=== PATIENT | male | born 1940 | race Caucasian/White ===

== ENCOUNTER 2018-12-26 13:34 | Outpatient (REF) | payer MEDICARE, OTHER, SELFPAY ==
[2018-12-26 14:24] LABS: Bilirubin Negative (Negative); Blood Small (Negative); Clarity Sl Cloudy; Glucose Negative (Negative); Ketones Negative (Negative); Leukocyte Esterase Moderate (Negative); Nitrite Negative (Negative); Specific Gravity 1.015 (1.005-1.025); Urobilinogen 0.2 EU/dL (Up TO 0.2)
[2018-12-26 14:38] LABS: C & S Indicated? Yes; WBC >50 HPF (0-5)
== END 2018-12-26 13:54 ==
LOC: LBN 13:34
PROVIDERS: PCP Family Medicine; Visit Provider Family Medicine
DX: N30.01 Acute cystitis with hematuria (principal)
CPT/HCPCS: 81003; 81015; 87086

== ENCOUNTER 2019-02-13 02:24 | Outpatient (CLI) | payer MEDICARE, OTHER, SELFPAY ==
[2019-02-13 15:15] LABS: ALT 18 U/L (12-78); AST 19 U/L (15-37); Albumin 3.7 g/dL (3.4-5.0); Alkaline Phosphatase 41 U/L (46-116); Anion Gap 8.9 mmol/L (3-11); BUN 19 mg/dL (7-18); Bilirubin, Total 0.5 mg/dL (0.2-1.0); CO2 28.1 mmol/L (21.0-32.0); CREATININE 1.27 mg/dL (0.70-1.30); Chloride 102 mmol/L (98-107); Cholesterol 111 mg/dL (50-200); Estimated GFR 55.14 (mL/min/1.73m2); Glucose 87 mg/dL (70-100); HDL Cholesterol 55 mg/dL (40-60); LDL CHOLESTEROL 48 mg/dL (<100); Potassium 4.1 mmol/L (3.5-5.1); Sodium 139 mmol/L (136-145); Total Protein 6.7 g/dL (6.4-8.2); Triglyceride 58 mg/dL (30-150)
== END 2019-02-13 02:44 ==
PROVIDERS: PCP Family Medicine; Visit Provider Family Medicine
DX: I10 Essential (primary) hypertension (principal); E78.5 Hyperlipidemia, unspecified
CPT/HCPCS: 36415; 80053; 80061; 83721

== ENCOUNTER 2019-02-20 08:15 | Day surgery (SDC) | payer MEDICARE, OTHER, SELFPAY ==
--- NOTE | 2019-02-19 12:04 | POEE_ITS ---
History of Present Illness Chief Complaint: Progressive decreased vision, left eye Narrative: The patient is a 78-year-old male with history of retinal ischemia of the left eye who is previously undergone cataract surgery in the right eye in 2015. He has best corrected vision of 20/20 in the right eye. Current visual acuity is 20/200 in the left eye and the presence of nuclear and cortical cataract. The option of cataract surgery was offered to the patient and he wished to proceed. NOTE: The Chief Complaint, HPI, Past Medical History, Past Surgical History, Family History, Social History, Medications, and complete Ophthalmic Exam with detailed Assessment and Plan have already been documented in the patient's outpatient ophthalmic record and are not covered again in detail here. [facility] Medical History History of atrial fibrillation (Acute) History of chronic obstructive pulmonary disease (Acute) Hypercholesteremia (Acute) Alzheimer's dementia (Chronic) Cataract (Chronic) Hypertension (Chronic) Surgical History History of surgical removal of ganglion cyst (Acute) Open Carpal Tunnel release Family History Mother Neoplasm Father Essential hypertension Hyperlipidemia Grandfather Heart disease Grandfather Essential hypertension Heart disease Hyperlipidemia Stroke Grandmother No problems noted. Grandmother Diabetes Heart disease Son No problems noted. Daughter Diabetes Essential hypertension Social History Smoking/Tobacco Use Status: Current-Occasional Drug use: Never Do you feel safe in your relationship?: Yes Meds Home Medications Medication Instructions Recorded Confirmed Type aspirin 325 mg PO DAILY tab-cap 09/02/14 02/17/19 History diltiazem HCl 120 mg PO DAILY tab-cap 09/02/14 02/17/19 History atorvastatin [Lipitor] 1 tab PO HS #90 tab 06/10/18 02/17/19 Rx lisinopril 1 tab PO DAILY #90 tab 06/10/18 02/17/19 Rx cholecalciferol (vitamin D3) 2,000 unit PO DAILY 02/17/19 02/17/19 History [Vitamin D3] magnesium 250 mg PO DAILY 02/17/19 02/17/19 History Allergies Allergy/AdvReac Type Severity Reaction Status Date / Time Sulfa (Sulfonamide AdvReac Severe DROP IN Unverified 02/17/19 09:27 Antibiotics) BLOOD COUNT Exam OCULAR EXAM:: Most recent ocular examination is significant for corrected visual acuity of 20/20 OD, 20/200 OS. Intraocular pressure is 13 OD, 12 OS. Extraocular motility is normal. Slit-lamp examination is significant for pupils dilating to 6.5 mm OU. Well-positioned PCIOL OD with some posterior subcapsular plaque temporally. 2-3+ nuclear with 1+ cortical cataract is present OS. Dilated funduscopic examination shows disc cupping of 0.3 OD 0.35 OS with normal vessels. Some drusen are present in both maculas. Peripheral retina and vitreous is normal OU. BRIGHTNESS ACUITY TESTING (BAT):: Brightness acuity testing of the left eye off is 20/200. Low is 20/200. Medium is 20/400. High is 20/400. Assessment and Plan (1) Nuclear sclerotic cataract of left eye: Current visit: No Status: Acute Assessment: Visually significant cataract, left eye. Plan: Cataract extraction with intraocular lens implantation, left eye (2) Cortical cataract of left eye: Current visit: No Status: Acute Assessment: Visually significant cataract, left eye. Plan: Cataract extraction with intraocular lens implantation, left eye Note: NOTE:: The details of the planned surgery, including the risks, indications,limitations,expectations,outcome and possible complications were explained to the patient. The patient understands the complications including, but not limited to: infection, hemorrhage, posterior dislocation of the lens or nuclear fragments which may require the intervention of a vitreoretinal surgeon, possible loss of the eye, or from anesthetic complications. The patient has been made aware of the option of not having surgery, that vision following surgery may not be equal to that prior to surgery, and that the planned surgery may not achieve the intended results. Following this discussion, which the patient appeared to understand, the patient wishes to proceed with cataract surgery with lens implantation of the affected eye to improve and maximize vision.
[2019-02-20 08:40] VITALS: BP 145/79; PULSE 55; RESP 18; TEMP 35.5; O2SAT 98
[2019-02-20] MEDS: Tetracaine 0.5% 4 ML BTL OS ×4 (08:51→10:21)
[2019-02-20] MEDS: Tropicam./Phenyleph. (1/2.5%) 5 ML BTL OS ×3 (08:51→09:00)
[2019-02-20] MEDS: Lidocaine 1% Pres-Free 5 ML VIAL (10:21)
[2019-02-20] MEDS: Lidocaine 2% Jelly 6 ML SYR (10:21)
[2019-02-20] MEDS: Povidone-Iodine Ophth 30 ML BTL (10:21)
[2019-02-20] MEDS: Trypan Blue 0.06% 0.5 ML SYR (10:21)
[2019-02-20] MEDS: Balanced Salt Soln.-PLUS 500 ML BAG (10:21)
--- NOTE | 2019-02-20 10:49 | W.PM.DSUDISC ---
Discharge Plan Disposition Patient Disposition: HOME Condition: Stable Discharge Details Attending Provider: Truong Shelby Primary Care Provider: González Rios Home Meds and New Rx's Prescriptions: No Action aspirin 325 MG tablet,delayed release (DR/EC) 325 mg PO DAILY RF: 0 diltiazem HCl 120 MG capsule,ext.rel 24h degradable 120 mg PO DAILY RF: 0 atorvastatin [Lipitor] 20 MG tablet 1 tab PO HS Qty: 90 RF: 4 lisinopril 10 MG tablet 1 tab PO DAILY Qty: 90 RF: 4 magnesium 250 mg Tablet 250 mg PO DAILY RF: 0 cholecalciferol (vitamin D3) [Vitamin D3] 2,000 unit Capsule 2,000 unit PO DAILY RF: 0 Discharge Instructions Stand Alone Forms: Post-op Topical Cataract, Justus Dickinson (DSU) Discharge Orders Discharge Orders: Discharge Order (Routine); Ordered 02/20/19 Ordered By: Truong Shelby DS: Diagnosis Discharge Diagnosis (1) Nuclear sclerotic cataract of left eye: Status: Resolved (2) Cortical cataract of left eye: Status: Resolved (3) Status post cataract extraction and insertion of intraocular lens of left eye: Status: Chronic
--- NOTE | 2019-02-20 10:54 | W.PM.OP ---
Date of service: 02/20/19 Time of Service: 10:54 Operative Note PRE-OP DIAGNOSIS: Cataract, left eye, with poor red reflex POST-OP DIAGNOSIS: same PROCEDURE: Cataract extraction using phacoemulsification with intraocular lens implant, left eye, using capsular staining with Vision Blue SURGEON: Truong Shelby ANESTHESIA: MAC (with local sub-tenon's anesthetic injection) COMPLICATIONS: None Patient was transported to: same day Patient's condition: stable Implants: [employer] Tecnis [id number] Indications: Progressive decreased vision due to cataract, left eye, with poor red reflex Procedure Description: CATARACT SURGERY OPERATIVE REPORT PREOPERATIVE DIAGNOSIS: 1. Nuclear/cortical cataract, left eye 2. Poor red reflex secondary to #1 POSTOPERATIVE DIAGNOSIS: Same OPERATION: 1. Cataract extraction using phacoemulsification with posterior chamber intraocular lens implant, left eye. 2. Capsular staining with Vision Blue IOL: IOL Merchandise Appraiser/Model: [employer] / [employer] Tecnis [id number] IOL Power: + 18.50 diopters IOL Serial Number: [id number] Optic Diameter: 6.0 mm Haptic/Overall Diameter: 13.0 mm PHACO INFO: [employer] Ecoarkurion Vision System with OZil and Active Fluidics Cumulative Dispersed Energy (CDE): 18.03 seconds SURGEON: Truong Shelby MD, JOLIE ANESTHESIA: Monitored [facility] ([facility]), with local sub-tenon's anesthetic infiltration COMPLICATIONS: None SPECIMENS: None INDICATIONS FOR PROCEDURE: The patient is a 78-year-old gentleman with history of progressive decreased vision in his left eye secondary to the development of nuclear and cortical cataract. He has previously undergone cataract surgery in his right eye in 2015. He is doing well postoperatively in his right eye and now presents for cataract surgery in the left eye. PROCEDURE: The correct surgical eye was identified and marked as the left eye and the pupil was dilated in the preoperative area using mydriatics and cycloplegics. The dilated pupil size was 7.0 mm. No sedation was given. The patient was brought to the operating room where cardiopulmonary monitoring was instituted and surgical time-out was performed, confirming the correct operative eye and IOL power. Topical anesthesia was administered and ophthalmic povidone-iodine 5% was instilled into the conjunctival fornices. Lidocaine gel was applied to the cornea and the elisa-ocular area was prepped with Betadine 10% solution and draped in the usual sterile fashion for intraocular surgery, including an aperture drape. A Tegaderm transparent film dressing was cut in half and used to cover the lashes and lid margins. Care was taken to sequester the lashes and lid margins under the Tegaderm dressing. A lid speculum was placed between the lids of the operative eye and the Calros-Chasity operating microscope was maneuvered into position. Ti scissors were then used to make a conjunctival buttonhole approximately 6mm posterior to the limbus in the inferonasal quadrant. Blunt dissection was carried out to expose bare sclera, and a blunt-tipped sub-tenon?s anesthesia cannula was introduced and passed posteriorly along the globe where non-preserved plain lidocaine was injected into posterior sub-Tenon?s space. A sideport knife was used to make a paracentesis port at the 12:00 position. Air was injected into the anterior chamber, followed by Vision Blue, which was painted over the anterior capsule and then irrigated out using BSS. The anterior chamber was filled with Healon GV. A 2.4mm keratome knife was used to create a half-thickness groove at the limbus and then to construct a three-plane near-clear corneal tunnel extending 2.0mm into clear cornea at the 3:00 position. A flap was raised on the anterior capsule and capsulorhexis forceps were used to complete a continuous curvilinear capsulorhexis of 5.0 mm. Balanced salt solution was then used to perform cortical cleaving hydrodissection and nuclear hydrodelineation until the lens could be freely rotated within the capsular bag. The lens nucleus was then disassembled and removed within the capsular bag and iris plane using phacoemulsification. Residual cortical material was removed using the 45-degree angled silicone I/A tip with 0.3mm port. The posterior capsule was carefully polished to remove as much residual lens epithelial cells as safely possible. The capsular bag was then inflated and the anterior chamber deepened with viscoelastic. The lens implant described above was inserted into the capsular bag using the [employer] [place] Injector. A Kuglen hook was used to dial the IOL into position. Residual viscoelastic was then removed first from posterior to the IOL, then from the anterior chamber using the I/A handpiece. The lens implant was noted to center nicely within the capsular bag. The incisions were stromally hydrated, and the anterior chamber was reformed using BSS. Then 0.4cc of moxifloxacin 1.5mg/ml were injected into the capsular bag and anterior chamber. The incisions were checked with a Weck spear and found to be secure. Several drops of ophthalmic povidone-iodine 5% were then applied to the eye followed by two drops of Imprimis combination moxifloxacin/dexamethasone solution. The drapes were removed and a clear plastic protective eye shield was placed over the eye. The patient was then returned to Same Day Surgery in stable condition.
--- NOTE | 2019-02-20 10:57 | ROE_ITS ---
Date of service: 02/20/19 Time of Service: 10:54 Operative Note PRE-OP DIAGNOSIS: Cataract, left eye, with poor red reflex POST-OP DIAGNOSIS: same PROCEDURE: Cataract extraction using phacoemulsification with intraocular lens implant, left eye, using capsular staining with Vision Blue SURGEON: Turong Shelby ANESTHESIA: MAC (with local sub-tenon's anesthetic injection) COMPLICATIONS: None Patient was transported to: same day Patient's condition: stable Implants: [employer] / [employer] Tecnis [id number] Indications: Progressive decreased vision due to cataract, left eye, with poor red reflex Procedure Description: CATARACT SURGERY OPERATIVE REPORT PREOPERATIVE DIAGNOSIS: 1. Nuclear/cortical cataract, left eye 2. Poor red reflex secondary to #1 POSTOPERATIVE DIAGNOSIS: Same OPERATION: 1. Cataract extraction using phacoemulsification with posterior chamber intraocular lens implant, left eye. 2. Capsular staining with Vision Blue IOL: IOL Cardiology Technician/Model: [employer] / [employer] Tecnis [id number] IOL Power: + 18.50 diopters IOL Serial Number: [id number] Optic Diameter: 6.0 mm Haptic/Overall Diameter: 13.0 mm PHACO INFO: [employer] Vision System with OZil and Active Fluidics Cumulative Dispersed Energy (CDE): 18.03 seconds SURGEON: Truong Shelby MD, JOLIE ANESTHESIA: Monitored A [facility] (MAC), with local sub-tenon's anesthetic infiltration COMPLICATIONS: None SPECIMENS: None INDICATIONS FOR PROCEDURE: The patient is a 78-year-old gentleman with history of progressive decreased vision in his left eye secondary to the development of nuclear and cortical cataract. He has previously undergone cataract surgery in his right eye in 2015. He is doing well postoperatively in his right eye and now presents for cataract surgery in the left eye. PROCEDURE: The correct surgical eye was identified and marked as the left eye and the pupil was dilated in the preoperative area using mydriatics and cycloplegics. The dilated pupil size was 7.0 mm. No sedation was given. The patient was brought to the operating room where cardiopulmonary monitoring was instituted and surgical time-out was performed, confirming the correct operative eye and IOL power. Topical anesthesia was administered and ophthalmic povidone-iodine 5% was in stilled into the conjunctival fornices. Lidocaine gel was applied to the cornea and the elisa-ocular area was prepped with Betadine 10% solution and draped in the usual sterile fashion for intraocular surgery, including an aperture drape. A Tegaderm transparent film dressing was cut in half and used to cover the lashes and lid margins. Care was taken to sequester the lashes and lid margins under the Tegaderm dressing. A lid speculum was placed between the lids of the operative eye and the Carlos-Chasity operating microscope was maneuvered into position. Ti scissors were then used to make a conjunctival buttonhole approximately 6mm posterior to the limbus in the inferonasal quadrant. Blunt dissection was carried out to expose bare sclera, and a blunt-tipped sub-tenon?s anesthesia ca nnula was introduced and passed posteriorly along the globe where non-preserved plain lidocaine was injected into posterior sub-Tenon?s space. A sideport knife was used to make a paracentesis port at the 12:00 position. Air was injected into the anterior chamber, followed by Vision Blue, which was painted over the anterior capsule and then irrigated out using BSS. The anterior chamber was filled with Healon GV. A 2.4mm keratome knife was used to create a half- thickness groove at the limbus and then to construct a three-plane near-clear corneal tunnel extending 2.0mm into clear cornea at the 3:00 position. A flap was raised on the anterior capsule and capsulorhexis forceps were used to complete a continuous curvilinear capsulorhexis of 5.0 mm. Balanced salt solution was then used to perform cortical cleaving hydrodissection and nuclear hydrodelineation until the lens could be freely rotated within the capsular bag. The lens nucleus was then disassembled and removed within the capsular bag and iris plane using phacoemulsification. Residual cortical material was removed using the 45-degree angled silicone I/A tip with 0.3mm port. The posterior capsule was carefully polished to remove as much residual lens epithelial cells as safely possible. The capsular bag was then inflated and the anterior chamber deepened with viscoelastic. The lens implant described above was inserted into the capsular bag using the [employer] [place] Injector. A Kuglen hook was used to dial the IOL into position. Residual viscoelastic was then removed first from posterior to the IOL, then from the anterior chamber using the I/A handpiece. The lens implant was noted to center nicely within the capsular bag. The incisions were stromally hydrated, and the anterior chamber was reformed using BSS. Then 0.4cc of moxifloxacin 1.5mg/ml were injected into the capsular bag and anterior chamber. The incisions were checked with a Weck spear and found to be secure. Several drops of ophthalmic povidone-iodine 5% were then applied to the eye followed by two drops of Imprimis combination moxifloxacin/dexamethasone solution. The drapes were removed and a clear plastic protective eye shield was placed over the eye. The patient was then returned to Same Day Surgery in stable condition.
== END 2019-02-20 11:15 | disposition home or self-care (01) ==
PROVIDERS: PCP Family Medicine; Visit Provider Ophthalmology
PROC: (CPT 66982; principal; 2019-02-20 11:00)
DX: H25.812 Combined forms of age-related cataract, left eye (principal); H35.89 Other specified retinal disorders; J44.9 Chronic obstructive pulmonary disease, unspecified; I10 Essential (primary) hypertension
CPT/HCPCS: 66982; V2632

== ENCOUNTER 2020-07-07 02:27 | Outpatient (CLI) | payer MEDICARE, OTHER, SELFPAY ==
[2020-07-07 12:54] LABS: Anion Gap 6.7 mmol/L (3-11); BUN 20 mg/dL (7-18); CO2 27.3 mmol/L (21.0-32.0); CREATININE 1.03 mg/dL (0.70-1.30); Calcium 8.6 mg/dL (8.5-10.1); Chloride 102 mmol/L (98-107); Glucose 99 mg/dL (74-106); Potassium 4.4 mmol/L (3.5-5.1); Sodium 136 mmol/L (136-145)
== END 2020-07-07 02:47 ==
PROVIDERS: PCP Family Medicine; Visit Provider Family Medicine
DX: I10 Essential (primary) hypertension (principal)
CPT/HCPCS: 36415; 80048

== ENCOUNTER → 2020-11-17 12:55 | Outpatient (BNVA) | payer MEDICARE, OTHER, SELFPAY | PROVIDERS: PCP Nurse Practitioner; Referring Provider Nurse Practitioner; Visit Provider Nurse Practitioner Adult Health | DX: G30.1 Alzheimer's disease with late onset (principal); F02.80 Dementia in other diseases classified elsewhere, unspecified severity, without behavioral disturbance, psychotic disturbance, mood disturbance, and anxiety | CPT/HCPCS: 99204; 99215 ==

== ENCOUNTER → 2020-12-21 12:30 | Outpatient (BNVA) | payer MEDICARE, OTHER, SELFPAY | PROVIDERS: PCP Nurse Practitioner; Referring Provider Nurse Practitioner; Visit Provider Nurse Practitioner Adult Health | DX: G30.9 Alzheimer's disease, unspecified (principal); F02.80 Dementia in other diseases classified elsewhere, unspecified severity, without behavioral disturbance, psychotic disturbance, mood disturbance, and anxiety | CPT/HCPCS: 99213; 99215 ==

== ENCOUNTER → 2021-03-01 08:35 | Outpatient (BNVA) | payer MEDICARE, OTHER, SELFPAY | PROVIDERS: PCP Nurse Practitioner; Referring Provider Nurse Practitioner; Visit Provider Nurse Practitioner Adult Health | DX: G30.1 Alzheimer's disease with late onset (principal); R63.4 Abnormal weight loss; F02.80 Dementia in other diseases classified elsewhere, unspecified severity, without behavioral disturbance, psychotic disturbance, mood disturbance, and anxiety | CPT/HCPCS: 99213; 99214 ==

== ENCOUNTER → 2021-04-12 09:25 | Outpatient (BNVA) | payer MEDICARE, OTHER, SELFPAY | PROVIDERS: PCP Nurse Practitioner; Visit Provider Nurse Practitioner Adult Health | DX: G30.9 Alzheimer's disease, unspecified (principal); F02.80 Dementia in other diseases classified elsewhere, unspecified severity, without behavioral disturbance, psychotic disturbance, mood disturbance, and anxiety | CPT/HCPCS: 99213 ==

== ENCOUNTER → 2021-08-09 09:36 | Outpatient (BNVA) | payer MEDICARE, OTHER, SELFPAY | PROVIDERS: PCP Nurse Practitioner; Referring Provider Nurse Practitioner; Visit Provider Nurse Practitioner Adult Health | DX: G30.1 Alzheimer's disease with late onset (principal); F02.80 Dementia in other diseases classified elsewhere, unspecified severity, without behavioral disturbance, psychotic disturbance, mood disturbance, and anxiety | CPT/HCPCS: 99214; 99215 ==

== ENCOUNTER → 2022-02-07 11:00 | Outpatient (BNVA) | payer MEDICARE, SELFPAY | PROVIDERS: PCP Nurse Practitioner; Referring Provider Nurse Practitioner; Visit Provider Nurse Practitioner Adult Health | DX: G30.9 Alzheimer's disease, unspecified (principal); F02.80 Dementia in other diseases classified elsewhere, unspecified severity, without behavioral disturbance, psychotic disturbance, mood disturbance, and anxiety | CPT/HCPCS: 99213 ==

== ENCOUNTER 2022-04-04 01:12 | Outpatient (CLI) | payer MEDICARE, SELFPAY ==
[2022-04-04 12:47] LABS: Anion Gap 7.6 mmol/L (3-11); BUN 20 mg/dL (7-18); CO2 30.4 mmol/L (21.0-32.0); CREATININE 1.2 mg/dL (0.70-1.30); Calcium 8.5 mg/dL (8.5-10.1); Calculated LDL 56 mg/dL (<100); Chloride 104 mmol/L (98-107); Cholesterol 128 mg/dL (<200); Estimated GFR 58.26 (mL/min/1.73m2); Glucose 93 mg/dL (74-106); HDL Cholesterol 51 mg/dL (40-60); Potassium 4.5 mmol/L (3.5-5.1); Sodium 142 mmol/L (136-145); Triglyceride 109 mg/dL (<150)
== END 2022-04-04 01:13 | disposition home or self-care (01) ==
LOC: LOS 01:12
PROVIDERS: PCP Nurse Practitioner; Visit Provider Nurse Practitioner
DX: I10 Essential (primary) hypertension (principal); E78.5 Hyperlipidemia, unspecified
CPT/HCPCS: 36415; 80048; 80061

== ENCOUNTER → 2023-03-11 13:46 | Outpatient (BNVA) | payer MEDICARE, SELFPAY | PROVIDERS: PCP Nurse Practitioner Family; Referring Provider Nurse Practitioner Family; Visit Provider Student in an Organized Health Care Education/Training Program | DX: M65.332 Trigger finger, left middle finger (principal) | CPT/HCPCS: 20550; 99213; J1030 ==

== ENCOUNTER 2024-01-03 09:00 | Emergency (ER) | payer MEDICARE, SELFPAY ==
[2024-01-03] VITALS (11 sets, daily range): BP systolic 134–201; BP diastolic 79–140; PULSE 57–155; RESP 12–27; TEMP 36.4; O2SAT 96–99
--- NOTE | 2024-01-03 09:08 | W.ED.GENAD ---
HPI General Mode of arrival: EMS. Date/Time Provider Initiated Documentation: 01/03/24 09:07. Limitations to Documentation: altered mental status (Hx of dementia) and physical limitation. Information obtained by: EMS. HPI Narrative: 83-year-old male presents to the ER via EMS with a chief complaint of possible left hip pain. EMS reports that caregiver on scene states no trauma no falls, there is no signs of trauma. Patient is ambulatory on scene and in the department. No crepitus or deformity noted on palpation no shortening rotation. Abdomen is soft nondistended. Of note that he has not had a bowel movement since Saturday. He does have a history of atrial fibrillation, he is on diltiazem aspirin lisinopril. He does have a history of tobacco use COPD hypercholesterolemia hypertension cataracts. On exam patient is confused, he is awake pleasant. Does have a history of dementia. Related Data Home Medications Medication Instructions Recorded Confirmed aspirin 325 mg tablet,delayed 325 mg PO DAILY 09/02/14 10/21/23 release magnesium 250 mg tablet 250 mg PO DAILY 02/17/19 10/21/23 cholecalciferol (vitamin D3) 25 1,000 unit PO DAILY 06/26/19 10/21/23 mcg (1,000 unit) capsule mirtazapine 7.5 mg tablet 7.5 mg PO QHS PRN 07/05/22 10/21/23 diltiazem HCl 120 mg 120 mg PO DAILY #90 tab-caps 01/15/23 10/21/23 capsule,extended release 24 hr, controlled lisinopril 10 mg tablet 10 mg PO DAILY #90 tabs 01/15/23 10/21/23 quetiapine 25 mg tablet See Rx Instructions .Route 07/29/23 10/21/23 .COMPLEX #120 tabs lorazepam 0.5 mg tablet 0.5 mg PO BID PRN anxiety #30 tabs 10/22/23 10/22/23 Previous Rx's Medication Instructions Recorded diltiazem HCl 120 mg 120 mg PO DAILY #90 tab-caps 01/15/23 capsule,extended release 24 hr, controlled lisinopril 10 mg tablet 10 mg PO DAILY #90 tabs 01/15/23 quetiapine 25 mg tablet See Rx Instructions .Route 07/29/23 .COMPLEX #120 tabs lorazepam 0.5 mg tablet 0.5 mg PO BID PRN anxiety #30 tabs 10/22/23 Allergies Allergy/AdvReac Type Severity Reaction Status Date / Time Sulfa (Sulfonamide AdvReac Severe DROP IN Verified 09/18/23 14:13 Antibiotics) BLOOD COUNT Review of Systems Narrative: History is obtained mostly by EMS. Patient is unable to give much information. Constitutional Constitutional: Reports as per HPI Gastrointestinal Gastrointestinal: Reports constipation Exam Narrative Exam Narrative: General: Well Developed, Awake and Alert, conversant. Skin: Warm and Dry HEENT: Head: No palpable deformities, Normocephalic Eyes: Pupils PERRLA, EOM's intact. No periorbital eccymosis or step off Ears: Canal patent. Tympanic membranes are clear . No manzo's sign, no hemptympanum. Nose/Face: Atraumatic. Facial bones nontender to palpation and stable with manipulation. Mouth/Throat: No intraoral trauma. Teeth and mandible are intact. Neck: No midline tenderness, no step off, no deformity to palpation of C-spine. Trachea midline. Chest: No surface trauma. Nontender without crepitus or deformity. Lungs clear to ausculatation bilaterally. Heart: RRR, no rubs, murmurs or gallop. Abdomen: No abrasions, ecchymosis, or surface trauma. Nondistended. Nontender to palpation no guarding, rebound, or rigidity. Pelvis: Nontender to palpation and stable to compression. Femoral pulses strong and equal Extremities: no surface trauma. Sensation intact. Peripheral pulses intact and equal. Neuro: ANO x4, GCS 15, cranial nerves II through XII intact. Motor and sensory exam nonfocal. Reflexes are symmetric. Medical Decision Making 83-year-old male presents to the ER via EMS with a chief complaint of possible left hip pain. EMS reports that caregiver on scene states no trauma no falls, there is no signs of trauma. Patient is ambulatory on scene and in the department. No crepitus or deformity noted on palpation no shortening rotation. Abdomen is soft nondistended. Of note that he has not had a bowel movement since Saturday. He does have a history of atrial fibrillation, he is on diltiazem aspirin lisinopril. He does have a history of tobacco use COPD hypercholesterolemia hypertension cataracts. On exam patient is confused, he is awake pleasant. Does have a history of dementia. Vital signs are stable O2 sat 98% on room air. Chest abdomen x-ray ordered. X-ray shows moderate constipation, no evidence of hip fracture or any bony abnormality. Patient is ambulatory with assistance up to the bathroom. He is moderately confused. I did discuss with his who is his main caregiver she reports that he has good days and bad days with his dementia and Alzheimer's. He does have a tendency to hold his stool. He had been drinking prune juice yesterday as last large bowel movement was on Saturday. Will send him home with magnesium citrate I did discuss [id number] options including Colace daily fleets enemas and glycerin suppositories. reports that he did get a senna yesterday. Plan is to discharge patient home with diagnosis of constipation. This text was generated using [employer] system, please disregard any oddities of phrase or misspellings. Medical Records Medical records reviewed: Yes I reviewed the patient's medical records. 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) has gotten lost in neighborhood Urinary incontinence due to cognitive impairment (Chronic) intermittent Unawareness (Chronic) at risk for crossing street Constipation, chronic (Chronic) Deficit in activities of daily living (ADL) (Chronic) cues and reminds him Health care proxy on file (Acute) DNI (do not intubate) (Acute) DNR (do not resuscitate) (Acute) POLST (Physician Orders for Life-Sustaining Treatment) (Acute) Alzheimer disease (Chronic) Executive function deficit (Chronic) Anomia (Chronic) Requires assistance with activities of daily living (ADL) (Chronic) Goals of care, counseling/discussion (Acute) Palliative care patient (Acute) Dementia (Chronic) 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 Mitral valve regurgitation (Acute) Synovial cyst of popliteal space (Acute) left leg- causes no problem to pt Paroxysmal atrial fibrillation (Acute 04/15/14) has seen cardiology [facility], asa, decided against eliquis at this time Hyperlipidemia (Acute) Essential hypertension (Acute) Carotid artery stenosis (Acute) left-[facility] BPH without urinary obstruction (Acute) Anemia (Acute) Medical History Tick bite with target lesion, May 2021 Chest pain History of tobacco use History of chronic obstructive pulmonary disease History of atrial fibrillation Hypercholesteremia Hypertension Cataract Anticoagulated on warfarin A-fib; goal 2-3 Surgical History Status post carpal tunnel release Status post cataract extraction and insertion of intraocular lens of right eye (04/20/15) Status post cataract extraction and insertion of intraocular lens of left eye (02/20/19) History of surgical removal of ganglion cyst Open Carpal Tunnel release LEFT - Pt spouse denies carpal tunnel Family History Mother , 75 Lung cancer Substance abuse Father , 84 Essential hypertension Hyperlipidemia Dementia per , multiple members of father's family with dementia Maternal Grandfather No problems noted. Paternal Grandfather , 68 Essential hypertension Heart disease Hyperlipidemia Stroke Grandmother , 92 No problems noted. Paternal Grandmother , 84 Diabetes Heart disease Son No problems noted. 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, [employer] Pets and animals: No Do you think of yourself as: straight/heterosexual Current gender identity: male What is your relationship status?: How often do you talk on the phone with friends or family?: never How often do you get together with friends or relatives?: once per week How often do you attend buddhism or christianity services?: decline to answer Do you belong to any clubs or organized social groups?: no Panel score (0-1 are the most socially isolated patients): 1 What type of physical activity do you participate in: walking Duration: 15-30 minutes/day Frequency: 3-4 times per week Radha/Adventist: No preference Special radha needs: No Seatbelt use: always Drive intox or ride w/intox driver recruiter: No Working smoke detector in home: Yes Fire extinguisher in home: Yes Do you feel safe at home: Yes Do you feel safe in your relationship?: Yes Additional Social history: Siddharth has been to Maria L for 57 years. Their 2 children live locally, daughter Sharita and son Bienvenido. 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 He went out on disability for his back at age 64. He sees his children and a friend, Saeed, who lives nearby. Except for Saeed's, Siddharth goes everywhere with Maria L. He cannot stay alone anymore. He does wander outside of their house. He has gotten lost when he went outside of visual range of their home. Maria L has been worried about his memory for 10+ years. He saw [facility] memory clinic about 10 years ago. They said he was fine then, per Maria L, though she knew better. He does still cross [address] to get to [place]; not a safe pedestrian. Discharge Plan Disposition Patient Disposition: Home Condition: Stable Discharge Details Clinical Impression: Acute constipation Primary Care Provider: Gerri Lan ED Provider: Swapna Waller Home Meds and New Rx's Prescriptions: Continued cholecalciferol (vitamin D3) 1,000 unit capsule 1,000 unit PO DAILY mirtazapine 7.5 mg tablet 7.5 mg PO QHS PRN Hold Instructions: Holding this med for now quetiapine 25 mg tablet See Rx Instructions .ROUTE .COMPLEX Qty: 120 3RF Dose Instruction: TAKE 1 TABLET BY MOUTH IN THE MORNING AND 1 TABLET AT BEDTIME WITH AN EXTRA TABLET DAILY NEEDED FOR AGITATION Rx Instructions: TAKE 1 TABLET BY MOUTH IN THE MORNING AND 2 TABLET AT BEDTIME WITH AN EXTRA TABLET DAILY NEEDED FOR AGITATION lorazepam 0.5 mg tablet 0.5 mg PO BID PRN (Reason: anxiety) Qty: 30 1RF Rx Instructions: Give 1 for agitation; may repeat 30 minutes later aspirin 325 MG tablet,delayed release (DR/EC) 325 mg PO DAILY diltiazem HCl 120 mg capsule,ext.rel 24h degradable 120 mg PO DAILY Qty: 90 4RF lisinopril 10 mg tablet 10 mg PO DAILY Qty: 90 4RF magnesium 250 mg Tablet 250 mg PO DAILY Discharge Instructions Instructions: Constipation (ED) Additional Instructions: No evidence of fracture or bony abnormality noted to the hip area. Does have some moderate constipation noted on x-ray. Please take half of the magnesium citrate when you get home couple hours later take the rest of the half if there is no bowel movement produced. Increase green leafy vegetables, you may try prunes or prune juice. Follow up with primary care provider in 3-5 days. Return to ED sooner if any worsening or concerns. Increase oral fluids. You may also get some Colace or docusate sodium [id number] this is a stool softener. They also have fleets enemas which you can obtain [id number]. Referrals: Gerri Lan NP [Primary Care Provider] - 5 days Discharge Data Discharge Date/Time-TO BE ENTERED AT DEPARTURE: 01/03/24 11:50
--- NOTE | 2024-01-03 10:40 | DI.RAD_ITS ---
Exam(s) XR HIP LT COMPLETE AP PELVIS EXAM: XR HIP LT COMPLETE AP PELVIS CLINICAL HISTORY: Left hip pain. TECHNIQUE: 2D digital imaging was performed of the left hip. Three views were obtained. AP pelvis and lateral left hip views were obtained. COMPARISON: No exams were available for comparison FINDINGS: BONES: No acute fracture is present. No bony destructive lesion is seen. JOINTS: No dislocation present. There are mild degenerative changes seen in the hips bilaterally. Th ere also mild degenerative changes seen at the sacroiliac joints. SOFT TISSUE: Vascular calcifications are present. IMPRESSION: No acute fracture or dislocation is identified. DATA REPOSITORY: RADIATION DOSE DELIVERED:
--- NOTE | 2024-01-03 10:40 | DI.RAD_ITS ---
Exam(s) XR ABD FLAT UPRIGHT PA CHEST EXAM: 2D digital imaging was performed. CLINICAL HISTORY: Constipation. COMPARISON: CR PORTABLE CHEST ONE VIEW from 03/25/2014 TECHNIQUE: Supine and upright abdomen and PA chest views were performed. Four images were obtained. FINDINGS: MEDIASTINUM: Normal. HEART: Normal. PULMONARY VASCULATURE: Normal. LUNGS: Clear. PLEURAL SPACE: No pleural effusion or pneumothorax. BONE:Within normal limits for the patient's age. OTHER FINDINGS:Normal. BOWEL GAS PATTERN: Nondistended. There is a moderate amount of stool in the colon. FREE AIR: None. CALCIFICATIONS: No radiopaque calcifications. OSSEOUS STRUCTURES: Normal for age. There is a right convex curvature of the thoracolumbar spine with the apex about L1. OTHER FINDINGS: None. IMPRESSION: 1. Moderate amount of stool in the colon suggesting constipation. 2. No acute pulmonary process. DATA REPOSITORY: RADIATION DOSE DELIVERED:
[2024-01-03] MEDS: Magnesium Citrate 300 ML BTL PO (11:48)
== END 2024-01-03 11:50 | disposition home or self-care (01) ==
PROVIDERS: Emergency Provider Registered Nurse Emergency; PCP Nurse Practitioner Family
DX: M25.552 Pain in left hip (principal); K59.00 Constipation, unspecified; G30.9 Alzheimer's disease, unspecified; F02.80 Dementia in other diseases classified elsewhere, unspecified severity, without behavioral disturbance, psychotic disturbance, mood disturbance, and anxiety; I48.0 Paroxysmal atrial fibrillation; E78.00 Pure hypercholesterolemia, unspecified; I10 Essential (primary) hypertension; J44.9 Chronic obstructive pulmonary disease, unspecified; Z79.01 Long term (current) use of anticoagulants; Z79.82 Long term (current) use of aspirin; Z87.891 Personal history of nicotine dependence
CPT/HCPCS: 99283; 73502; 74022

== ENCOUNTER 2024-03-28 13:15 | Emergency (ER) | payer MEDICARE, SELFPAY ==
--- NOTE | 2024-03-28 13:00 | RT.EKG_ITS ---
APPROVED REPORT Exam: Resting ECG Reason for Exam: syncope, chest pain Patient Location: E HR:72 bpm ECG Measurements Heart Rate 72 AXIS IA 190 P 65 QRSd 74 QRS 72 QT 398 T 77 QTc 435 Conclusion Sinus rhythm 72 no stemi
[2024-03-28 13:17] VITALS: BP 138/70; PULSE 70; RESP 18; TEMP 36.6; O2SAT 94
[2024-03-28 13:40] VITALS: RESP 14
[2024-03-28 13:45] LABS: Abs Immature Grans 0.02 10^3/uL (0.0-0.06); Absolute Basophil Count 0.07 10^3/uL (0.0-0.2); Absolute Eosinophil Count 0.25 10^3/uL (0.0-0.7); Absolute Lymphocyte Count 1.27 10^3/uL (1.2-3.4); Absolute Monocyte Count 0.71 10^3/uL (0.1-0.8); Absolute Neutrophil Count 5.58 10^3/uL (1.2-6.7); Basophils % 0.9; Eosinophils % 3.2; HCT 37.4 % (40.0-50.0); Immature Grans % 0.3; Lymphocytes % 16.1; MCH 32.8 pg (27.0-33.0); MCHC 34.8 % (32.0-36.0); MCV 94 fL (80-95); MPV 10.1 fL (8.0-11.0); Neutrophils % 70.5; Platelet Count 223 10^3/uL (130-400); RBC 3.96 10^6/uL (4.36-5.78); RDW 12.3 % (11.8-14.1)
[2024-03-28] MEDS: OLANZapine 10 MG VIAL IM (14:03)
[2024-03-28 14:09] LABS: ALT 13 U/L (16-63); AST 15 U/L (15-37); Albumin 3.3 g/dL (3.4-5.0); Alkaline Phosphatase 53 U/L (46-116); Anion Gap 8.1 mmol/L (3-11); BUN 30 mg/dL (7-18); Bilirubin, Total 0.5 mg/dL (0.2-1.0); CO2 28.9 mmol/L (21.0-32.0); CREATININE 1.6 mg/dL (0.70-1.30); Calcium 8.2 mg/dL (8.5-10.1); Chloride 104 mmol/L (98-107); Creatine Kinase 73 U/L (39-308); Estimated GFR 42.75 (mL/min/1.73m2); Glucose 115 mg/dL (74-106); Magnesium 2.1 mg/dL (1.8-2.4); NT-proBNP 633 pg/mL (<300); Potassium 4.5 mmol/L (3.5-5.1); Sodium 141 mmol/L (136-145); Total Protein 6.8 g/dL (6.4-8.2); Troponin I < 50 ng/L (< or =60)
[2024-03-28 14:17] VITALS: PULSE 80
[2024-03-28 14:38] VITALS: BP 132/78; PULSE 82; RESP 18; O2SAT 93
--- NOTE | 2024-03-28 16:19 | ED.GENADUL_ITS ---
Discharge Plan Disposition Patient Disposition: Home Discharge Details Clinical Impression: SUSIE (acute kidney injury), Dementia, Syncope Primary Care Provider: Gerri Lan ED Provider: Florecita Thompson Home Meds and New Rx's Prescriptions: No Action cholecalciferol (vitamin D3) 1,000 unit capsule 1,000 unit PO DAILY mirtazapine 7.5 mg tablet 7.5 mg PO QHS PRN Hold Instructions: Holding this med for now lorazepam 0.5 mg tablet 0.5 mg PO BID PRN (Reason: anxiety) Qty: 30 1RF Rx Instructions: Give 1 for agitation; may repeat 30 minutes later rivastigmine 4.6 mg/24 hour patch 24 hour 4.6 mg transdermal DAILY Qty: 30 5RF diltiazem HCl 120 mg capsule,ext.rel 24h degradable 120 mg PO DAILY Qty: 90 4RF quetiapine 25 mg tablet See Rx Instructions .ROUTE .COMPLEX Qty: 120 3RF Dose Instruction: TAKE 1 TABLET BY MOUTH IN THE MORNING AND 1 TABLET AT BEDTIME WITH AN EXTRA TABLET DAILY NEEDED FOR AGITATION Rx Instructions: TAKE 1 TABLET BY MOUTH IN THE MORNING AND 2 TABLET AT BEDTIME WITH AN EXTRA TABLET DAILY NEEDED FOR AGITATION lisinopril 20 mg tablet 20 mg PO DAILY Qty: 90 3RF magnesium 250 mg Tablet 250 mg PO DAILY Discharge Instructions Instructions: Syncope (ED) Additional Instructions: try to increase water intake please follow up with primary providers Discharge Data Discharge Date/Time-TO BE ENTERED AT DEPARTURE: 03/28/24 14:58 HPI General Date/Time Provider Initiated Documentation: 03/28/24 13:52 . Limitations to Documentation: altered mental status . Information obtained by: family and EMS . 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 Patient was out for a walk with his when he passed out. reports that he then passed out a second time. He may have been complaining of chest pain during this time. EMS reports his blood pressure was slightly low with a systolic in the 90s. On 's arrival, she states that this happens often, she does not feel very worried. She reports that he is DNR and does not want to put him through any unnecessary testing she reports that his dementia is very severe and that all of this can be very troublesome for the patient. Related Data Home Medications Medication Instructions Recorded Confirmed magnesium 250 mg tablet 250 mg PO DAILY 02/17/19 03/02/24 cholecalciferol (vitamin D3) 25 1,000 unit PO DAILY 06/26/19 03/02/24 mcg (1,000 unit) capsule mirtazapine 7.5 mg tablet 7.5 mg PO QHS PRN 07/05/22 03/02/24 diltiazem HCl 120 mg 120 mg PO DAILY #90 tab-caps 01/15/23 03/02/24 capsule,extended release 24 hr, controlled lorazepam 0.5 mg tablet 0.5 mg PO BID PRN anxiety #30 tabs 10/22/23 03/02/24 quetiapine 25 mg tablet See Rx Instructions .Route 01/22/24 03/02/24 .COMPLEX #120 tabs rivastigmine 4.6 mg/24 hour 4.6 mg transdermal DAILY #30 ea 02/19/24 03/02/24 transdermal patch lisinopril 20 mg tablet 20 mg PO DAILY #90 tabs 02/25/24 03/02/24 Previous Rx's Medication Instructions Recorded diltiazem HCl 120 mg 120 mg PO DAILY #90 tab-caps 01/15/23 capsule,extended release 24 hr, controlled lorazepam 0.5 mg tablet 0.5 mg PO BID PRN anxiety #30 tabs 10/22/23 quetiapine 25 mg tablet See Rx Instructions .Route 01/22/24 .COMPLEX #120 tabs rivastigmine 4.6 mg/24 hour 4.6 mg transdermal DAILY #30 ea 02/19/24 transdermal patch lisinopril 20 mg tablet 20 mg PO DAILY #90 tabs 02/25/24 Allergies Allergy/AdvReac Type Severity Reaction Status Date / Time Sulfa (Sulfonamide AdvReac Severe DROP IN Verified 03/02/24 13:58 Antibiotics) BLOOD COUNT General Stated Complaint: [id number] THA: 2 Exam Narrative Exam Narrative: Review of Systems: All systems reviewed & are unremarkable except as noted in HPI and below Well-developed, no acute distress NCAT PERRL, normal conjunctiva RRR, no murmur No hypotension Unlabored respiratory effort, no retractions, tachypnea or hypoxia Nondistended abdomen, nontender Extremities w/o deformity, no cyanosis, no edema No rashes or lesions. no focal neurologic deficits Alert, friendly, generally cooperative, but completely confused Course Vital Signs Vital signs: Vital Signs Temperature 36.6 C 03/28/24 13:17 Pulse 70 03/28/24 13:17 Respiratory Rate 18 03/28/24 13:17 Blood Pressure 138/70 03/28/24 13:17 Pulse Oximetry 94 03/28/24 13:17 Temperature 36.6 C 03/28/24 13:17 Temperature Source Tympanic 03/28/24 13:17 Pulse 82 03/28/24 14:38 Respiratory Rate 18 03/28/24 14:38 Respiratory Effort Normal, Non-Labored 03/28/24 13:39 Blood Pressure 132/78 03/28/24 14:38 Blood Pressure Position Sitting 03/28/24 13:17 Pulse Oximetry 93 03/28/24 14:38 Oxygen Delivery Method Room Air 03/28/24 14:38 Oxygen Flow Rate 0 03/28/24 14:38 Comment Pt w/ severe dementia, aggressive and noncompliant. HR 80 and sinus rhythm (pt pulling at cords, off after ~10 sec). Unable to assess blood pressure. 03/28/24 14:17 Lab/Test Results Lab/Test Results: Laboratory Tests Range/Units 03/28/24 03/28/24 03/28/24 13:35 13:50 16:15 WBC (4.4-10.8) 10^3/uL 7.90 RBC (4.36-5.78) 10^6/uL 3.96 L Hgb (13.5-17.5) g/dL 13.0 L Hct (40.0-50.0) % 37.4 L MCV (80-95) fL 94 MCH (27.0-33.0) pg 32.8 MCHC (32.0-36.0) % 34.8 RDW (11.8-14.1) % 12.3 Plt Count (130-400) 10^3/uL 223 MPV (8.0-11.0) fL 10.1 Immature Gran % 0.3 Neutrophils % 70.5 Lymphocytes % 16.1 Monocytes % 9.0 Eosinophils % 3.2 Basophils % 0.9 Nucleated RBC % (0.0-0.3) % 0.0 Absolute Neutrophils (1.2-6.7) 10^3/uL 5.58 Absolute Lymphocytes (1.2-3.4) 10^3/uL 1.27 Absolute Monocytes (0.1-0.8) 10^3/uL 0.71 Absolute Eosinophils (0.0-0.7) 10^3/uL 0.25 Absolute Basophils (0.0-0.2) 10^3/uL 0.07 PT Cancelled Cancelled INR Cancelled Cancelled Sodium (136-145) mmol/L 141 Potassium (3.5-5.1) mmol/L 4.5 Chloride (98-107) mmol/L 104 Carbon Dioxide (21.0-32.0) mmol/L 28.9 Anion Gap (3-11) mmol/L 8.1 BUN (7-18) mg/dL 30 H Creatinine (0.70-1.30) mg/dL 1.6 H Est GFR (CKD-EPI 2020) (mL/min/1.73m2) 42.75 Glucose (74-106) mg/dL 115 H Calcium (8.5-10.1) mg/dL 8.2 L Magnesium (1.8-2.4) mg/dL 2.1 Total Bilirubin (0.2-1.0) mg/dL 0.5 AST (15-37) U/L 15 ALT (16-63) U/L 13 L Alkaline Phosphatase (46-116) U/L 53 Creatine Kinase (39-308) U/L 73 Troponin I (< or =60) ng/L < 50 Cancelled NT-Pro-B Natriuret Pep (<300) pg/mL 633 H Total Protein (6.4-8.2) g/dL 6.8 Albumin (3.4-5.0) g/dL 3.3 L Medical Decision Making Emergent evaluation of syncopal episode. Initial differential includes ACS, vasovagal symptoms, cardiac dysrhythmia. Initial report that there was some chest pain or some hypotension, neither of which seem to be occurring at this time. His initial EKG does not reveal a dysrhythmia or other acute ischemic change. He is hemodynamically stable. His who is his power of senior attorney does not want him to have invasive testing will be admitted to the hospital. Initially, the patient was difficult to manage secondary to his dementia and trying to get lab work, a dose of Zyprexa was given. later stated that he had not received his Seroquel that morning. His lab work was reviewed. No significant anemia or leukocytosis. He does have a slight SUSIE. His BNP is marginally elevated, his troponin is not elevated. I offered IV fluids, but the wishes to take him home and attempt oral hydration. She states that she will follow-up with his palliative care team. Medical Records Medical records reviewed: Yes I reviewed the patient's medical records. Lab Data Lab results reviewed: Yes I reviewed the patient's lab results. Quality:[facility] Health Related Social Needs: No Data to Display [facility] All Active Problems Syncope (Chronic) SUSIE (acute kidney injury) (Acute) Trigger finger, left middle finger (Acute) 40 mg Depo-medrol: 03/11/23 Cough (Acute) Wandering behavior due to dementia (Chronic) has gotten lost in neighborhood Urinary incontinence due to cognitive impairment (Chronic) intermittent Unawareness (Chronic) at risk for crossing street Constipation, chronic (Chronic) Deficit in activities of daily living (ADL) (Chronic) cues and reminds him Health care proxy on file (Acute) DNI (do not intubate) (Acute) DNR (do not resuscitate) (Acute) POLST (Physician Orders for Life-Sustaining Treatment) (Acute) Alzheimer disease (Chronic) Executive function deficit (Chronic) Anomia (Chronic) Requires assistance with activities of daily living (ADL) (Chronic) Goals of care, counseling/discussion (Acute) Palliative care patient (Acute) Dementia (Chronic) 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 BPH without urinary obstruction (Acute) Anemia (Acute) Medical History Tick bite with target lesion, May 2021 Chest pain History of tobacco use History of chronic obstructive pulmonary disease History of atrial fibrillation Hypercholesteremia Hypertension Cataract Anticoagulated on warfarin A-fib; goal 2-3 Surgical History Status post carpal tunnel release Status post cataract extraction and insertion of intraocular lens of right eye (04/20/15) Status post cataract extraction and insertion of intraocular lens of left eye (02/20/19) History of surgical removal of ganglion cyst Open Carpal Tunnel release LEFT - Pt spouse denies carpal tunnel Family History Mother , 75 Lung cancer Substance abuse Father , 84 Essential hypertension Hyperlipidemia Dementia per , multiple members of father's family with dementia Maternal Grandfather No problems noted. Paternal Grandfather , 68 Essential hypertension Heart disease Hyperlipidemia Stroke Grandmother , 92 No problems noted. Paternal Grandmother , 84 Diabetes Heart disease Son No problems noted. 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, [employer] Pets and animals: No Do you think of yourself as: straight/heterosexual Current gender identity: male What is your relationship status?: How often do you talk on the phone with friends or family?: never How often do you get together with friends or relatives?: once per week How often do you attend amish or judaism services?: decline to answer Do you belong to any clubs or organized social groups?: no Panel score (0-1 are the most socially isolated patients): 1 What type of physical activity do you participate in: walking Duration: 15-30 minutes/day Frequency: 3-4 times per week Radha/Oriental Orthodox: No preference Special radha needs: No Seatbelt use: always Drive intox or ride w/intox light truck driver: No Working smoke detector in home: Yes Fire extinguisher in home: Yes Do you feel safe at home: Yes Do you feel safe in your relationship?: Yes Additional Social history: Siddharth has been to Maria L for 57 years. Their 2 children live locally, daughter Sharita and son Bienvenido. 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 He went out on disability for his back at age 64. He sees his children and a friend, Saeed, who lives nearby. Except for Saeed's, Siddharth goes everywhere with Maria L. He cannot stay alone anymore. He does wander outside of their house. He has gotten lost when he went outside of visual range of their home. Maria L has been worried about his memory for 10+ years. He saw [facility] memory clinic about 10 years ago. They said he was fine then, per Maria L, though she knew better. He does still cross [address] to get to Saeed's; not a safe pedestrian.
== END 2024-03-28 14:58 | disposition home or self-care (01) ==
PROVIDERS: Emergency Provider Emergency Medicine; PCP Nurse Practitioner Family
DX: R55 Syncope and collapse (principal); G30.9 Alzheimer's disease, unspecified; F02.C0 Dementia in other diseases classified elsewhere, severe, without behavioral disturbance, psychotic disturbance, mood disturbance, and anxiety; I48.0 Paroxysmal atrial fibrillation; I10 Essential (primary) hypertension; Z66 Do not resuscitate; Z87.891 Personal history of nicotine dependence; R07.9 Chest pain, unspecified; N17.8 Other acute kidney failure
CPT/HCPCS: 80053; 82550; 93005; 96372; 99284; 83735; 83880; 84484; 85025; 85610; 93010; J2359

== ENCOUNTER 2024-05-19 10:38 | Emergency (ER) | payer MEDICARE, MEDICAID, SELFPAY ==
[2024-05-19 10:37] VITALS: BP 169/144; PULSE 66; RESP 14; TEMP 36; O2SAT 98
--- NOTE | 2024-05-19 10:49 | ED.GENADUL_ITS ---
Discharge Plan Disposition Patient Disposition: Home Condition: Stable Discharge Details Clinical Impression: Dementia Primary Care Provider: Gerri Lan ED Provider: Aiden Mann Home Meds and New Rx's Prescriptions: Continued cholecalciferol (vitamin D3) 1,000 unit capsule 1,000 unit PO DAILY mirtazapine 7.5 mg tablet 7.5 mg PO QHS PRN Hold Instructions: Holding this med for now lorazepam 0.5 mg tablet 0.5 mg PO BID PRN (Reason: anxiety) Qty: 30 1RF Rx Instructions: Give 1 for agitation; may repeat 30 minutes later rivastigmine 4.6 mg/24 hour patch 24 hour 4.6 mg transdermal DAILY Qty: 30 5RF quetiapine 25 mg tablet See Rx Instructions .ROUTE .COMPLEX Qty: 120 3RF Dose Instruction: TAKE 1 TABLET BY MOUTH IN THE MORNING AND 1 TABLET AT BEDTIME WITH AN EXTRA TABLET DAILY NEEDED FOR AGITATION Rx Instructions: TAKE 1 TABLET BY MOUTH IN THE MORNING AND 2 TABLET AT BEDTIME WITH AN EXTRA TABLET DAILY NEEDED FOR AGITATION lisinopril 20 mg tablet 20 mg PO DAILY Qty: 90 3RF diltiazem HCl 120 mg capsule,ext.rel 24h degradable 120 mg PO DAILY Qty: 90 4RF magnesium 250 mg Tablet 250 mg PO DAILY Discharge Instructions Additional Instructions: Follow-up with your outpatient care management and also primary care provider If you feel more ill or have new symptoms such as high fevers or difficulty breathing return to the emergency department for reevaluation HPI General Mode of arrival: EMS . Date/Time Provider Initiated Documentation: 05/19/24 10:43 . Information obtained by: EMS . History of Present Illness 84 year old M presents to the emergency department with the chief complaint of Aggression towards , described as moderate, Patient started experiencing this unknown and it has been intermittent. No relieving factors improve symptom(s), No exacerbating factors reported . Patient did receive the following treatments prior to arrival, none Related Data Home Medications Medication Instructions Recorded Confirmed magnesium 250 mg tablet 250 mg PO DAILY 02/17/19 05/19/24 cholecalciferol (vitamin D3) 25 1,000 unit PO DAILY 06/26/19 05/19/24 mcg (1,000 unit) capsule mirtazapine 7.5 mg tablet 7.5 mg PO QHS PRN 07/05/22 05/19/24 lorazepam 0.5 mg tablet 0.5 mg PO BID PRN anxiety #30 tabs 10/22/23 05/19/24 quetiapine 25 mg tablet See Rx Instructions .Route 01/22/24 05/19/24 .COMPLEX #120 tabs rivastigmine 4.6 mg/24 hour 4.6 mg transdermal DAILY #30 ea 02/19/24 05/19/24 transdermal patch lisinopril 20 mg tablet 20 mg PO DAILY #90 tabs 02/25/24 05/19/24 diltiazem HCl 120 mg 120 mg PO DAILY #90 tab-caps 04/14/24 05/19/24 capsule,extended release 24 hr, controlled Previous Rx's Medication Instructions Recorded lorazepam 0.5 mg tablet 0.5 mg PO BID PRN anxiety #30 tabs 10/22/23 quetiapine 25 mg tablet See Rx Instructions .Route 01/22/24 .COMPLEX #120 tabs rivastigmine 4.6 mg/24 hour 4.6 mg transdermal DAILY #30 ea 02/19/24 transdermal patch lisinopril 20 mg tablet 20 mg PO DAILY #90 tabs 02/25/24 diltiazem HCl 120 mg 120 mg PO DAILY #90 tab-caps 04/14/24 capsule,extended release 24 hr, controlled Allergies Allergy/AdvReac Type Severity Reaction Status Date / Time Sulfa (Sulfonamide AdvReac Severe DROP IN Verified 05/19/24 11:09 Antibiotics) BLOOD COUNT General Stated Complaint: GenMedical THA: 3 Review of Systems Unobtainable due to mental condition Exam Const General: no acute distress Orientation: alert [facility] Head: normal to inspection Ears: external ears normal General nose exam: external nose normal Mouth: moist mucous membranes Eyes General: appearance normal, both eyes and all related structures Neck Neck: normal visual inspection Resp Effort & Inspection: normal respiratory effort and able to speak in complete sentences Cardio Rate: regular rate Skin General skin exam: no rashes or lesions noted Neuro General: patient alert and oriented Patient Orientation: Person, Place and Time Extrem General: normal to inspection Psych Mental Status: mental status grossly normal Course Vital Signs Vital signs: Vital Signs Temperature 36.0 C L 05/19/24 10:37 Pulse 66 05/19/24 10:37 Respiratory Rate 14 05/19/24 10:37 Blood Pressure 169/144 H 05/19/24 10:37 Pulse Oximetry 98 05/19/24 10:37 Temperature 36.0 C L 05/19/24 10:37 Temperature Source Temporal Artery Scan 05/19/24 10:37 Pulse 66 05/19/24 10:37 Respiratory Rate 14 05/19/24 10:37 Blood Pressure 169/144 H 05/19/24 10:37 Blood Pressure Position Sitting 05/19/24 10:37 Pulse Oximetry 98 05/19/24 10:37 Oxygen Delivery Method Room Air 05/19/24 10:37 Oxygen Flow Rate 0 05/19/24 10:37 Pain Level 0 05/19/24 10:37 Medical Decision Making 84-year-old male with a history of Alzheimer's who comes in after his states that he has been aggressive towards her and does not feel like she can safely keep him at home anymore. He arrives with EMS ambulatory and is pacing around the room and also in the department. He is intermittently redirectable. He is aware of his name but is not aware of the time or place which seems to be his baseline. He is not able to provide any meaningful history. Suspect this is underlying from his Alzheimer's will consult with care management. Given able not step on another department he will be in zone B no also given oral Ativan to help with any anxiety he might be experiencing and this is also on his med list. Patient's UA shows leukocytes, has no white count no fever so doubt sepsis. One-time dose of fosfomycin given here. He has been, cooperative here, management as per the patient referral sent to the [facility], they are unable to take him today, the has been here and is willing to take him home and will work with their outpatient care management for placement. Differential Diagnosis Differential Diagnosis: Dementia, unsafe at home Medical Records Medical records reviewed: Yes I reviewed the patient's medical records. Lab Data Lab results reviewed: Yes I reviewed the patient's lab results. Quality:[facility] Health Related Social Needs: No Data to Display PFSH All Active Problems (Updated 05/19/24 @ 15:31 by Aiden Mann MD) Trigger finger, left middle finger (Acute) 40 mg Depo-medrol: 03/11/23 Cough (Acute) Wandering behavior due to dementia (Chronic) has gotten lost in neighborhood Urinary incontinence due to cognitive impairment (Chronic) intermittent Unawareness (Chronic) at risk for crossing street Constipation, chronic (Chronic) Deficit in activities of daily living (ADL) (Chronic) cues and reminds him Health care proxy on file (Acute) DNI (do not intubate) (Acute) DNR (do not resuscitate) (Acute) POLST (Physician Orders for Life-Sustaining Treatment) (Acute) Alzheimer disease (Chronic) Executive function deficit (Chronic) Anomia (Chronic) Requires assistance with activities of daily living (ADL) (Chronic) Goals of care, counseling/discussion (Acute) Palliative care patient (Acute) Dementia (Chronic) 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 Mitral valve regurgitation (Acute) Synovial cyst of popliteal space (Acute) left leg- causes no problem to pt Paroxysmal atrial fibrillation (Acute 04/15/14) has seen cardiology [facility], asa, decided against eliquis at this time Hyperlipidemia (Acute) Essential hypertension (Acute) Carotid artery stenosis (Acute) left-[facility] BPH without urinary obstruction (Acute) Anemia (Acute) Medical History Tick bite with target lesion, May 2021 Chest pain History of tobacco use History of chronic obstructive pulmonary disease History of atrial fibrillation Hypercholesteremia Hypertension Cataract Anticoagulated on warfarin A-fib; goal 2-3 Surgical History Status post carpal tunnel release Status post cataract extraction and insertion of intraocular lens of right eye (04/20/15) Status post cataract extraction and insertion of intraocular lens of left eye (02/20/19) History of surgical removal of ganglion cyst Open Carpal Tunnel release LEFT - Pt spouse denies carpal tunnel Family History Mother , 75 Lung cancer Substance abuse Father , 84 Essential hypertension Hyperlipidemia Dementia per , multiple members of father's family with dementia Maternal Grandfather No problems noted. Paternal Grandfather , 68 Essential hypertension Heart disease Hyperlipidemia Stroke Grandmother , 92 No problems noted. Paternal Grandmother , 84 Diabetes Heart disease Son No problems noted. 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, [employer] Pets and animals: No Do you think of yourself as: straight/heterosexual Current gender identity: male What is your relationship status?: How often do you talk on the phone with friends or family?: never How often do you get together with friends or relatives?: once per week How often do you attend yazdanism or taoist services?: decline to answer Do you belong to any clubs or organized social groups?: no Panel score (0-1 are the most socially isolated patients): 1 What type of physical activity do you participate in: walking Duration: 15-30 minutes/day Frequency: 3-4 times per week Radha/Caodaism: No preference Special radha needs: No Seatbelt use: always Drive intox or ride w/intox lifter/driver: No Working smoke detector in home: Yes Fire extinguisher in home: Yes Do you feel safe at home: Yes Do you feel safe in your relationship?: Yes Additional Social history: Siddharth has been to Maria L for 57 years. Their 2 children live locally, daughter Sharita and son Bienvenido. 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 He went out on disability for his back at age 64. He sees his children and a friend, Saeed, who lives nearby. Except for Saeed's, Siddharth goes everywhere with Maria L. He cannot stay alone anymore. He does wander outside of their house. He has gotten lost when he went outside of visual range of their home. Maria L has been worried about his memory for 10+ years. He saw [facility] memory clinic about 10 years ago. They said he was fine then, per Maria L, though she knew better. He does still cross [address] to get to Saeed's; not a safe pedestrian.
[2024-05-19 11:02] VITALS: RESP 18
[2024-05-19] MEDS: LORazepam 1 MG TAB PO (11:39)
[2024-05-19 11:51] VITALS: BP 169/144; PULSE 66; RESP 18; TEMP 36; O2SAT 98
[2024-05-19 12:26] LABS: Bilirubin Negative (Negative); Blood Negative (Negative); Clarity Sl Cloudy (Clear); Glucose Negative (Negative); Ketones Negative (Negative); Leukocyte Esterase Moderate (Negative); Nitrite Negative (Negative); Specific Gravity 1.015 (1.005-1.025); Urobilinogen 0.2 mg/dL (Up to 0.2)
[2024-05-19 12:37] LABS: Bacteria Rare HPF (Negative); C & S Indicated? Yes; Casts Negative LPF (Negative); Crystals Negative HPF (Negative); Epithelial Cells Rare HPF (Negative); Mucus Negative (Negative); RBC 0-2 HPF (0-2); WBC >50 HPF (0-5)
[2024-05-19 13:15] LABS: Abs Immature Grans 0.02 10^3/uL (0.0-0.06); Absolute Basophil Count 0.06 10^3/uL (0.0-0.2); Absolute Eosinophil Count 0.19 10^3/uL (0.0-0.7); Absolute Lymphocyte Count 0.81 10^3/uL (1.2-3.4); Absolute Monocyte Count 0.52 10^3/uL (0.1-0.8); Absolute Neutrophil Count 5.48 10^3/uL (1.2-6.7); Basophils % 0.8 %; Eosinophils % 2.7 %; HCT 40.7 % (40.0-50.0); Immature Grans % 0.3 %; Lymphocytes % 11.4 %; MCH 32.9 pg (27.0-33.0); MCHC 34.4 % (32.0-36.0); MCV 96 fL (80-95); MPV 9.8 fL (8.0-11.0); Monocytes % 7.3 %; Neutrophils % 77.5 %; Platelet Count 260 10^3/uL (130-400); RBC 4.26 10^6/uL (4.36-5.78); RDW 13.2 % (11.8-14.1); RDW-SD 46.5 fL; WBC 7.08 10^3/uL (4.4-10.8)
[2024-05-19 13:38] LABS: ALT 14 U/L (16-63); AST 15 U/L (15-37); Albumin 4.1 g/dL (3.4-5.0); Alkaline Phosphatase 56 U/L (46-116); Anion Gap 8.1 mmol/L (3-11); BUN 29 mg/dL (7-18); Bilirubin, Total 0.6 mg/dL (0.2-1.0); CO2 29.9 mmol/L (21.0-32.0); CREATININE 1.4 mg/dL (0.70-1.30); Calcium 8.8 mg/dL (8.5-10.1); Chloride 101 mmol/L (98-107); Estimated GFR 50.18 (mL/min/1.73m2); Glucose 124 mg/dL (74-106); Magnesium 2.3 mg/dL (1.8-2.4); Potassium 4.5 mmol/L (3.5-5.1); Sodium 139 mmol/L (136-145); TSH (W/Ref FT4) 1.08 uIU/mL (0.36-3.74); Total Protein 8.4 g/dL (6.4-8.2)
[2024-05-19] MEDS: Fosfomycin Tromethamine 3 GM PACKET PO (14:10)
[2024-05-19 15:32] VITALS: BP 165/142; PULSE 66; RESP 17; TEMP 36.8; O2SAT 98
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
--- NOTE | 2024-05-21 12:19 | NUR.NOTE ---
Accessed Pt chart to see if he was prescribed antibiotics. He was not and the specimen document was given to Dr Mann
== END 2024-05-19 15:52 | disposition home or self-care (01) ==
PROVIDERS: Emergency Provider Emergency Medicine; PCP Nurse Practitioner Family
DX: G30.9 Alzheimer's disease, unspecified (principal); F02.811 Dementia in other diseases classified elsewhere, unspecified severity, with agitation; I48.0 Paroxysmal atrial fibrillation; I10 Essential (primary) hypertension; E78.5 Hyperlipidemia, unspecified; J44.9 Chronic obstructive pulmonary disease, unspecified; Z66 Do not resuscitate; Z79.01 Long term (current) use of anticoagulants; Z87.891 Personal history of nicotine dependence
CPT/HCPCS: 36415; 80053; 99283; 81003; 81015; 83735; 84443; 85025; 87086; J3490

== ENCOUNTER 2024-07-03 10:55 | Inpatient (IN) | payer MEDICARE, MEDICAID, SELFPAY ==
[2024-07-03] VITALS (36 sets, daily range): BP systolic 113–163; BP diastolic 53–135; PULSE 49–151; RESP 17–31; TEMP 36.6–36.9; O2SAT 91–98
--- NOTE | 2024-07-03 10:45 | RT.EKG_ITS ---
APPROVED REPORT Exam: Resting ECG Reason for Exam: Weakness, confusion Patient Location: E HR:74 bpm ECG Measurements Heart Rate 74 AXIS MA 180 P 35 QRSd 78 QRS 57 QT 406 T 65 QTc 451 Conclusion Sinus rhythm...normal P axis, V-rate 60- 99 Multiform ventricular premature complexes...short R-R, variable morphology Aberrant conduction of SV complex(es)...aberrant shape, MA 80-220 poor baseline, appears regular, narrow complex
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
[2024-07-03] MEDS: Normal Saline 500 ML 1000 ML IV (11:25)
[2024-07-03 12:19] LABS: Abs Immature Grans 0.05 10^3/uL (0.0-0.06); Absolute Basophil Count 0.06 10^3/uL (0.0-0.2); Absolute Eosinophil Count 0.18 10^3/uL (0.0-0.7); Absolute Lymphocyte Count 1.47 10^3/uL (1.2-3.4); Absolute Monocyte Count 1.22 10^3/uL (0.1-0.8); Basophils % 0.4 %; Eosinophils % 1.3 %; HCT 38.7 % (40.0-50.0); HGB 13.5 g/dL (13.5-17.5); Immature Grans % 0.4 %; Lymphocytes % 10.4 %; MCH 32.3 pg (27.0-33.0); MCHC 34.9 % (32.0-36.0); MCV 93 fL (80-95); MPV 10.1 fL (8.0-11.0); Monocytes % 8.6 %; Neutrophils % 78.9 %; Platelet Count 264 10^3/uL (130-400); RBC 4.18 10^6/uL (4.36-5.78); RDW 13.3 % (11.8-14.1); RDW-SD 45.1 fL; WBC 14.16 10^3/uL (4.4-10.8)
[2024-07-03 12:22] LABS: Absolute Neutrophil Count 11.17 10^3/uL (1.2-6.7)
[2024-07-03 12:32] LABS: INR 1.2 (0.9-1.1); PTT Activated 29.2 sec (23.6-32.8); Prothrombin Time 11.5 sec (9.1-11.1)
[2024-07-03 12:43] LABS: ALT 11 U/L (16-63); AST 10 U/L (15-37); Albumin 3.5 g/dL (3.4-5.0); Alkaline Phosphatase 59 U/L (46-116); Anion Gap 6.6 mmol/L (3-11); BUN 24 mg/dL (7-18); Bilirubin, Total 0.74 mg/dL (0.2-1.0); CO2 29.4 mmol/L (21.0-32.0); CREATININE 1.5 mg/dL (0.70-1.30); Calcium 8.6 mg/dL (8.5-10.1); Chloride 102 mmol/L (98-107); ETHANOL BLOOD < 3.0 mg/dL (<10); Estimated GFR 46.19 (mL/min/1.73m2); Glucose 104 mg/dL (74-106); Magnesium 2.1 mg/dL (1.8-2.4); Potassium 4.9 mmol/L (3.5-5.1); Sodium 138 mmol/L (136-145); TSH (W/Ref FT4) 1.18 uIU/mL (0.36-3.74); Total Protein 7.9 g/dL (6.4-8.2)
[2024-07-03 14:21] LABS: Bilirubin Negative (Negative); Blood Trace-intact (Negative); Clarity Clear (Clear); Glucose Negative (Negative); Ketones Negative (Negative); Leukocyte Esterase Moderate (Negative); Nitrite Negative (Negative); Specific Gravity 1.015 (1.005-1.025); Urobilinogen 0.2 mg/dL (Up to 0.2); pH 6.5 (5-8)
[2024-07-03 14:32] LABS: Bacteria Rare HPF (Negative); C & S Indicated? Yes; Casts Negative LPF (Negative); Crystals Negative HPF (Negative); Epithelial Cells Rare HPF (Negative); Mucus Negative (Negative); Other Cells Rare Renal (Negative); RBC 0-2 HPF (0-2); WBC >50 HPF (0-5)
--- NOTE | 2024-07-03 14:35 | DI.CT_ITS ---
Exam(s) CT HEAD WO EXAM: CT HEAD WO CLINICAL HISTORY: ams, [place]. TECHNIQUE: Imaging Protocol: Axial computed tomography images with coronal and sagittal reformatted images were created and reviewed COMPARISON: CT HEAD WITH/WITHOUT CONTRAST from 12/29/2008 FINDINGS: Exam somewhat limited by motion. Ventricles and Extra axial spaces: Normal in size and morphology for the patient's age. Hemorrhage: None. Cerebral parenchyma: No evidence of acute infarct or mass. Moderate to severe atrophy. Moderate wh ite matter changes of small vessel disease. Midline shift: None. Brainstem/Cerebellum: Normal. Calvarium: Normal. Visualized Paranasal sinuses:Clear. Mastoids: Clear. Soft Tissues: Unremarkable. ORBITS: Unremarkable. PITUITARY: Not enlarged. IMPRESSION: No acute intracranial process. RADIATION DOSE DELIVERED: Total DLP DATA REPOSITORY: All CT scans at this facility are submitted to the National Radiology Data Registry (NRDR) Dose Index Registry (DIR) with the [employer] (ACR). RADIATION OPTIMIZATION: All CT scans at this facility use at least one of these dose optimization te chniques: automated exposure control; mA and/or kV adjustment per patient size (includes targeted exa ms where dose is matched to clinical indication); or iterative reconstruction.
--- NOTE | 2024-07-03 14:52 | DI.RAD_ITS ---
Exam(s) XR PELVIS AP EXAM: XR PELVIS AP CLINICAL HISTORY: unable to walk, dementia. TECHNIQUE: 2D digital imaging was performed.Two images were obtained. COMPARISON: CR XR HIP LT COMPLETE AP PELVIS from 01/03/2024 FINDINGS: BONES: No acute fracture is present. No bony destructive lesion is seen. JOINTS: No dislocation present. No joint space narrowing is present. The sacroiliac joints are well m aintained as is the symphysis pubis. There are mild degenerative changes seen in the lower lumbar sp ine. SOFT TISSUE: Vascular calcifications are present. IMPRESSION: No acute fracture or dislocation. DATA REPOSITORY: RADIATION DOSE DELIVERED:
--- NOTE | 2024-07-03 14:53 | DI.RAD_ITS ---
Exam(s) XR CHEST 2V PA LATERAL EXAM: XR CHEST 2V PA LATERAL CLINICAL HISTORY: fatigue TECHNIQUE: 2D digital imaging was performed of the chest. Three images were obtained. PA and later al views were obtained. COMPARISON: CR PORTABLE CHEST ONE VIEW from 03/25/2014 FINDINGS: MEDIASTINUM: Normal. HEART: Normal. PULMONARY VASCULATURE: Normal. LUNGS: On the lateral examination, there is an infiltrate in the posterior aspect of the right lower lobe. PLEURAL SPACE: Posteriorly, there is blunting at the costophrenic angle suggesting a small pleural ef fusion. BONE:Within normal limits for the patient's age. OTHER FINDINGS:Normal. IMPRESSION: 1. Small infiltrate posteriorly in the right lower lobe on the lateral view. 2. Question of a small right pleural effusion posteriorly. DATA REPOSITORY: RADIATION DOSE DELIVERED:
[2024-07-03] MEDS: levoFLOXacin 500 MG, levoFLOXacin 250 MG 750 MG PO (15:35)
--- NOTE | 2024-07-03 16:15 | RT.EKG_ITS ---
APPROVED REPORT Exam: Resting ECG Reason for Exam: Tachycardia greater than 140s Patient Location: E HR:138 bpm ECG Measurements Heart Rate 138 AXIS GA 123 P 147 QRSd 75 QRS 26 QT 314 T 46 QTc 476 Conclusion Sinus or ectopic atrial tachycardia...P axis (-45,135), rate> 99 Low voltage, extremity leads...all extremity leads <0.5mV Repolarization abnormality, prob rate related...ST dep, T neg, tachycardia likely afib rvr given irregularity on monitor
[2024-07-03] MEDS: dilTIAZem 25 MG/5 ML VIAL 15 MG IVP ×2 (16:38→20:14)
--- NOTE | 2024-07-03 17:00 | RT.EKG_ITS ---
APPROVED REPORT Exam: Resting ECG Reason for Exam: repeat Patient Location: E HR:72 bpm ECG Measurements Heart Rate 72 AXIS NE [id number] P [id number] QRSd 85 QRS 37 QT 458 T 48 QTc 501 Conclusion Atrial flutter with predominant 4:1 AV block...A-rate 294, multiple Ps Low voltage, extremity leads...all extremity leads <0.5mV Prolonged QT interval...QTc >500mS
[2024-07-03] MEDS: dilTIAZem 25 MG/5 ML VIAL 20 MG IVP (17:03)
--- NOTE | 2024-07-03 18:18 | HPE_ITS ---
Date of service: 07/03/24 Time of Service: 18:18 Assessment and Plan Assessment and plan (1) Pneumonia: Start date: 07/03/24 Status: Acute Assessment and plan: This is an 84-year-old gentleman presenting with increased weakness and confusion with advanced dementia being taken care of at home by his . To have possible UTI and infiltrate in his right lower lobe on x-ray indicating pneumonia. He does have an elevated WBC but no measured fever or chills. He has had minimal respiratory symptoms. He is not hypoxic on room air. Patient was initiated on Rocephin and Zithromax after 1 dose of Levaquin with this change because of his outpatient medications for dementia and agitation having complex. We will follow-up urine cultures and monitor symptoms with symptomatic treatment for his increased agitation being hospitalized and ill in the hospital. He is a DNR/DNI. Qualifiers: Laterality: right Lung location: lower lobe of lung Pneumonia type: d ue to unspecified organism Qualified Code(s): J18.9 - Pneumonia, unspecified organism (2) Acute UTI: Start date: 07/03/24 Status: Acute Assessment and plan: Continue Rocephin with Zithromax and follow-up urine culture adjust antibiotic therapy as needed (3) Atrial flutter, paroxysmal: Start date: 07/03/24 Status: Acute Assessment and plan: Paroxysmal atrial flutter with rapid response patient on diltiazem chronically increased to 240 mg daily with 60 mg every 6 hours and he will receive intermittent IV diltiazem for heart rate over 110. He is a DNR/DNI. Continue cardiac monitoring and patient is not requiring ICU level care at this time though if he requires a drip or tachycardia, he will be transferred to ICU. Patient did have a history of atrial fibrillation in the past and is not on anticoagulation presently with atrial flutter. (4) Alzheimer disease: Status: Chronic Assessment and plan: Patient has severe end-stage dementia with agitated behavior exacerbated by his acute illness and being in unfamiliar surroundings at the hospital and away from his . Continue usual dosing of Seroquel with as needed dosing orally and as needed Ativan with shorter intervals and increased dose because of severe agitation. Patient will be kept comfortable and does have a 24-hour sitter to avoid harm to self or others as well as redirection which is at this time affect. Patient is a DNR/DNI. History of Present Illness History of Present Illness Chief Complaint: Increased weakness with confusion and unable to stand. Narrative: This is an 84-year-old patient who is cared for by his who has advanced dementia on Seroquel daily who has had increased weakness and unable to stand or get off the couch the evening prior to presentation to the ED. He been having progressive weakness over the last couple days. He did not have any new neurological deficit has not been eating and drinking as usual. Patient is unable to give history with giving history to ED physician, see ED note. Patient was diagnosed with a UTI with urine culture pending and a left lower lobe pneumonia now on Rocephin and Zithromax with initial dose of Levaquin given in the ED. Levaquin was discontinued because possible interaction with the patient's home meds. Patient had increased agitation after being hospitalized in the evening and has had tachycardia with atrial flutter treated with IV of diltiazem initially which did slow his rate to 100 and lower and his usual oral diltiazem dose was increased with split dosing. Patient continues to have agitation and tachycardia requiring increasing doses of IV diltiazem but was not initiated on diltiazem drip. He did respond to IV diltiazem and agitation was worse than his tachycardia. He does respond to Ativan which was given at home intermittently and increased Seroquel dosing which will be done while hospitalized. He also has a 24-hour sitter to help redirect which is effective. Patient did not have any cough or significant complaints of fever at home and presently is not having any respiratory distress. He mostly has exacerbation of his mental status with change of environment and his acute illness with advanced dementia/Alzheimer's. He is a DNR/DNI. Review of Systems Narrative: 13 point review of systems otherwise unobtainable with patient not able to communicate. ED physician did review history with when patient presented to the ED. [facility] All Active Problems (Updated 07/03/24 @ 18:31 by Alexis Vera) Atrial flutter, paroxysmal (Acute) Acute UTI (Acute) Pneumonia (Acute) Atrial flutter (Acute) Left leg swelling (Acute) Trigger finger, left middle finger (Acute) 40 mg Depo-medrol: 03/11/23 Cough (Acute) Wandering behavior due to dementia (Chronic) has gotten lost in neighborhood Urinary incontinence due to cognitive impairment (Chronic) intermittent Unawareness (Chronic) at risk for crossing street Constipation, chronic (Chronic) Deficit in activities of daily living (ADL) (Chronic) cues and reminds him Health care proxy on file (Acute) DNI (do not intubate) (Acute) DNR (do not resuscitate) (Acute) POLST (Physician Orders for Life-Sustaining Treatment) (Acute) Alzheimer disease (Chronic) Executive function deficit (Chronic) Anomia (Chronic) Requires assistance with activities of daily living (ADL) (Chronic) Goals of care, counseling/discussion (Acute) Palliative care patient (Acute) Dementia (Chronic) 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 Mitral valve regurgitation (Acute) Synovial cyst of popliteal space (Acute) left leg- causes no problem to pt Paroxysmal atrial fibrillation (Acute 04/15/14) has seen cardiology [facility], asa, decided against eliquis at this time Hyperlipidemia (Acute) Essential hypertension (Acute) Carotid artery stenosis (Acute) [place] B[facility] without urinary obstruction (Acute) Anemia (Acute) Medical History Tick bite with target lesion, May 2021 Chest pain History of tobacco use History of chronic obstructive pulmonary disease History of atrial fibrillation Hypercholesteremia Hypertension Cataract Anticoagulated on warfarin A-fib; goal 2-3 Surgical History Status post carpal tunnel release Status post cataract extraction and insertion of intraocular lens of right eye (04/20/15) Status post cataract extraction and insertion of intraocular lens of left eye (02/20/19) History of surgical removal of ganglion cyst Open Carpal Tunnel release LEFT - Pt spouse denies carpal tunnel Family History Mother , 75 Lung cancer Substance abuse Father , 84 Essential hypertension Hyperlipidemia Dementia per , multiple members of father's family with dementia Maternal Grandfather No problems noted. Paternal Grandfather , 68 Essential hypertension Heart disease Hyperlipidemia Stroke Grandmother , 92 No problems noted. Paternal Grandmother , 84 Diabetes Heart disease Son No problems noted. 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, [employer] Pets and animals: No Do you think of yourself as: straight/heterosexual Current gender identity: male What is your relationship status?: How often do you talk on the phone with friends or family?: never How often do you get together with friends or relatives?: once per week How often do you attend restorationist or anabaptist services?: decline to answer Do you belong to any clubs or organized social groups?: no Panel score (0-1 are the most socially isolated patients): 1 What type of physical activity do you participate in: walking Duration: 15-30 minutes/day Frequency: 3-4 times per week Radha/Zoroastrianism: No preference Special radha needs: No Seatbelt use: always Drive intox or ride w/intox auto carrier driver: No Working smoke detector in home: Yes Fire extinguisher in home: Yes Do you feel safe at home: Yes Do you feel safe in your relationship?: Yes Additional Social history: Siddharth has been to Maria L for 57 years. Their 2 children live locally, daughter Sharita and son Bienvenido. 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 He went out on disability for his back at age 64. He sees his children and a friend, Saeed, who lives nearby. Except for Saeed's, Siddharth goes everywhere with Maria L. He cannot stay alone anymore. He does wander outside of their house. He has gotten lost when he went outside of visual range of their home. Maria L has been worried about his memory for 10+ years. He saw [facility] about 10 years ago. They said he was fine then, per Maria L, though she knew better. He does still cross [address] to get to Saeed's; not a safe pedestrian. Meds Allergies and Home Medications Allergies Allergy/AdvReac Type Severity Reaction Status Date / Time Sulfa (Sulfonamide AdvReac Severe DROP IN Verified 07/03/24 11:06 Antibiotics) BLOOD COUNT Home Medications ?Medication ?Instructions ?Recorded ?Confirmed ?Type lorazepam 0.5 mg tablet 0.5 mg PO BID PRN anxiety #30 tabs 10/22/23 07/03/24 Rx lisinopril 20 mg tablet 20 mg PO DAILY #90 tabs 06/23/24 07/03/24 Rx rivastigmine 9.5 mg/24 hour 9.5 mg transdermal DAILY #90 ea 06/23/24 07/03/24 Rx transdermal patch quetiapine 25 mg tablet See Rx Instructions .Route 06/24/24 07/03/24 Rx .COMPLEX #360 tabs diltiazem HCl 120 mg capsule,24 120 mg PO DAILY 07/03/24 07/03/24 History hr,extended release Exam Narrative Exam Narrative: General: Patient is thin and tall lying in bed with slight agitation when awake but resting comfortably without movement and covered up to his neck when sleeping. He does not respond to redirection by the sitter at his bedside. He is not violent at the time of my exam. He is not cooperative with marked decreased short-term memory. He does not appear in acute distress when sleeping. HEENT: Normocephalic, eyes with pupils equal and reactive to light symmetrically, extraocular movement intact and sclera anicteric. Oropharynx with slightly dry mucosa. Neck: Supple without JVD. Back: Stooped posture without CVA tenderness. Lungs: Bronchovesicular sounds diffusely with fair aeration and no focalizing rales or rhonchi. No expiratory wheeze. Heart: Tachycardic rate with regular rhythm and heart rate in the 140s at the time of my exam. 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 No murmurs or gallops appreciated. Abdomen: Scaphoid contour, soft and nontender to palpation without guarding or rebound. No palpable hepatosplenomegaly. Bowel sounds positive all quadrants. No suprapubic discomfort and patient is wearing adult diaper. Genitalia/rectal: Exam deferred. Extremities without clubbing, cyanosis or pitting edema. Muscle wasting diffusely. Fair capillary refill. Skin: Normal color, warm and dry. Fair turgor. Neuro: Cranial nerves II through XII appear to be grossly intact. No focalizing motor deficits. No tremor at rest the patient does have slight tremor when active. Increased tone when active. Psych: Delirious with patient not focusing well but redirected easily when medicated. No abnormal thought processes manifested the patient is normally communicative. Short-term and long-term memory not testable with severe, advanced dementia. Results Imaging Imaging Studies: EXAM: CT HEAD WO CLINICAL HISTORY: ams, [place]. TECHNIQUE: Imaging Protocol: Axial computed tomography images with coronal and sagittal reformatted images were created and reviewed COMPARISON: CT HEAD WITH/WITHOUT CONTRAST from 12/29/2008 FINDINGS: Exam somewhat limited by motion. Ventricles and Extra axial spaces: Normal in size and morphology for the patient's age. Hemorrhage: None. Cerebral parenchyma: No evidence of acute infarct or mass. Moderate to severe atrophy. Moderate white matter changes of small vessel disease. Midline shift: None. Brainstem/Cerebellum: Normal. Calvarium: Normal. Visualized Paranasal sinuses:Clear. Mastoids: Clear. Soft Tissues: Unremarkable. ORBITS: Unremarkable. PITUITARY: Not enlarged. IMPRESSION: No acute intracranial process. EXAM: XR PELVIS AP CLINICAL HISTORY: unable to walk, dementia. TECHNIQUE: 2D digital imaging was performed.Two images were obtained. COMPARISON: CR XR HIP LT COMPLETE AP PELVIS from 01/03/2024 FINDINGS: BONES: No acute fracture is present. No bony destructive lesion is seen. JOINTS: No dislocation present. No joint space narrowing is present. The sacroiliac joints are well maintained as is the symphysis pubis. There are mild degenerative changes seen in the lower lumbar spine. SOFT TISSUE: Vascular calcifications are present. IMPRESSION: No acute fracture or dislocation. EXAM: XR CHEST 2V PA LATERAL CLINICAL HISTORY: fatigue TECHNIQUE: 2D digital imaging was performed of the chest. Three images were obtained. PA and lateral views were obtained. COMPARISON: CR PORTABLE CHEST ONE VIEW from 03/25/2014 FINDINGS: MEDIASTINUM: Normal. HEART: Normal. PULMONARY VASCULATURE: Normal. LUNGS: On the lateral examination, there is an infiltrate in the posterior aspect of the right lower lobe. PLEURAL SPACE: Posteriorly, there is blunting at the costophrenic angle suggesting a small pleural effusion. BONE:Within normal limits for the patient's age. OTHER FINDINGS:Normal. IMPRESSION: 1. Small infiltrate posteriorly in the right lower lobe on the lateral view. 2. Question of a small right pleural effusion posteriorly. Labs 07/03/24 12:10 07/03/24 12:10 Labs: Laboratory Results - last 24 hr 07/03/24 07/03/24 12:10 14:15 WBC 14.16 H RBC 4.18 L Hgb 13.5 Hct 38.7 L MCV 93 MCH 32.3 MCHC 34.9 RDW 13.3 Plt Count 264 MPV 10.1 Immature Gran % 0.4 Neutrophils % 78.9 Lymphocytes % 10.4 Monocytes % 8.6 Eosinophils % 1.3 Basophils % 0.4 Nucleated RBC % 0.0 Absolute Neutrophils 11.17 H Absolute Lymphocytes 1.47 Absolute Monocytes 1.22 H Absolute Eosinophils 0.18 Absolute Basophils 0.06 PT 11.5 H INR 1.2 H APTT 29.2 Sodium 138 Potassium 4.9 Chloride 102 Carbon Dioxide 29.4 Anion Gap 6.6 BUN 24 H Creatinine 1.5 H Est GFR (CKD-EPI 2020) 46.19 Glucose 104 Calcium 8.6 Magnesium 2.1 Total Bilirubin 0.74 AST 10 L ALT 11 L Alkaline Phosphatase 59 Total Protein 7.9 Albumin 3.5 TSH 1.18 Urine Color Yellow Urine Clarity Clear Urine pH 6.5 Ur Specific Enders 1.015 Urine Protein Negative Urine Ketones Negative Urine Blood Trace-intact H Urine Nitrite Negative Urine Bilirubin Negative Urine Urobilinogen 0.2 Ur Leukocyte Esterase Moderate H Urine RBC 0-2 Urine WBC >50 H Ur Epithelial Cells Rare Urine Crystals Negative Urine Bacteria Rare Urine Casts Negative Urine Mucus Negative Urine Other Rare Renal Ur Culture Indicated? Yes Urine Glucose Negative Ethyl Alcohol < 3.0 Last Vital Signs Temp 36.9 C 07/03/24 10:58 Pulse 108 H 07/03/24 18:16 Resp 19 07/03/24 18:10 BP 132/68 07/03/24 18:01 Pulse Ox 97 07/03/24 10:58 Time Spent Time spent with Patient: >75 minutes Time was spent: preparing to see the patient(eg.review tests), ordering medications,tests, procedures, indepentently interpreting results and care coordination
[2024-07-03] MEDS: QUEtiapine 50 MG TAB PO (19:42)
[2024-07-03] MEDS: dilTIAZem 60 MG TAB PO (19:42)
[2024-07-03] MEDS: LORazepam 0.5 MG TAB PO ×2 (19:54→21:22)
[2024-07-03] MEDS: Normal Saline Flush 10 ML SYR IVP (19:57)
--- NOTE | 2024-07-03 20:52 | NUR.NOTE ---
Nursing is staying in room with patient to help keep patient calm and it seems to help pt. rest if someone is in the room. Nursing Note:
--- NOTE | 2024-07-04 01:09 | W.PC.ACHO ---
Registration Status: Primary Language: Preferred Language: ED Information & Data Chief Complaint GenMedical 07/03/24 12:00 Chief Complaint GenMedical 07/03/24 11:25 Triage Note increased confusion and 07/03/24 10:58 decreased mobility since last night. HX Dementia Medical / Surgical History (Last Reviewed 07/03/24 @ 18:18 by Alexis Vera) Tick bite Chest pain History of tobacco use History of chronic obstructive pulmonary disease History of atrial fibrillation Hypercholesteremia Hypertension Cataract Anticoagulated on warfarin (Last Reviewed 07/03/24 @ 18:18 by Alexis Vera) Status post carpal tunnel release Status post cataract extraction and insertion of intraocular lens of right eye (04/20/15) Status post cataract extraction and insertion of intraocular lens of left eye (02/20/19) History of surgical removal of ganglion cyst Open Carpal Tunnel release Most Recent Vital Signs Temperature 36.6 C 07/03/24 18:37 Pulse 107 H 07/03/24 18:37 Pulse Rhythm Irregular 07/03/24 18:37 Pulse 106 H 07/03/24 18:10 Respiratory Rate 18 07/03/24 18:37 Respiratory Effort Normal 07/03/24 18:37 Respiratory Depth Shallow 07/03/24 18:37 Respiratory Pattern Tachypnea 07/03/24 18:37 Blood Pressure 146/113 H 07/03/24 18:37 Blood Pressure Mean 86 07/03/24 18:01 Pulse Oximetry 91 L 07/03/24 18:37 Oxygen Delivery Method Room Air 07/03/24 18:37 Oxygen Flow Rate 0 07/03/24 18:37 Allergies Sulfa (Sulfonamide Antibiotics) Adverse Reaction (Severe, Verified 07/03/24 11:06) DROP IN BLOOD COUNT IV IV Catheter Type [Left Peripheral IV Antecubital] IV Catheter Gauge [Left 18 Antecubital] Diet Orders Category Date Time Status Regular/Normal [DIET] Nutrition 07/03/24 Dinner Active Diagnostics 07/03/24 07/03/24 Range/Units 14:15 12:10 WBC 14.16 H (4.4-10.8) 10^3/uL RBC 4.18 L (4.36-5.78) 10^6/uL Hgb 13.5 (13.5-17.5) g/dL Hct 38.7 L (40.0-50.0) % MCV 93 (80-95) fL MCH 32.3 (27.0-33.0) pg MCHC 34.9 (32.0-36.0) % RDW 13.3 (11.8-14.1) % Plt Count 264 (130-400) 10^3/uL MPV 10.1 (8.0-11.0) fL Immature Gran % 0.4 % Neutrophils % 78.9 % Lymphocytes % 10.4 % Monocytes % 8.6 % Eosinophils % 1.3 % Basophils % 0.4 % Nucleated RBC % 0.0 (0.0-0.3) % Absolute Neutrophils 11.17 H (1.2-6.7) 10^3/uL Absolute Lymphocytes 1.47 (1.2-3.4) 10^3/uL Absolute Monocytes 1.22 H (0.1-0.8) 10^3/uL Absolute Eosinophils 0.18 (0.0-0.7) 10^3/uL Absolute Basophils 0.06 (0.0-0.2) 10^3/uL PT 11.5 H (9.1-11.1) sec INR 1.2 H (0.9-1.1) APTT 29.2 (23.6-32.8) sec Sodium 138 (136-145) mmol/L Potassium 4.9 (3.5-5.1) mmol/L Chloride 102 (98-107) mmol/L Carbon Dioxide 29.4 (21.0-32.0) mmol/L Anion Gap 6.6 (3-11) mmol/L BUN 24 H (7-18) mg/dL Creatinine 1.5 H (0.70-1.30) mg/dL Est GFR (CKD-EPI 2020) 46.19 (mL/min/1.73m2) Glucose 104 (74-106) mg/dL Calcium 8.6 (8.5-10.1) mg/dL Magnesium 2.1 (1.8-2.4) mg/dL Total Bilirubin 0.74 (0.2-1.0) mg/dL AST 10 L (15-37) U/L ALT 11 L (16-63) U/L Alkaline Phosphatase 59 (46-116) U/L Total Protein 7.9 (6.4-8.2) g/dL Albumin 3.5 (3.4-5.0) g/dL TSH 1.18 (0.36-3.74) uIU/mL Urine Color Yellow (Yellow) Urine Clarity Clear (Clear) Urine pH 6.5 (5-8) Ur Specific [place] 1.015 (1.005-1.025) Urine Protein Negative (Neg-Trace) mg/dL Urine Ketones Negative (Negative) mg/dL Urine Blood Trace-intact H (Negative) Urine Nitrite Negative (Negative) Urine Bilirubin Negative (Negative) Urine Urobilinogen 0.2 (Up to 0.2) mg/dL Ur Leukocyte Esterase Moderate H (Negative) Urine RBC 0-2 (0-2) HPF Urine WBC >50 H (0-5) HPF Ur Epithelial Cells Rare (Negative) HPF Urine Crystals Negative (Negative) HPF Urine Bacteria Rare (Negative) HPF Urine Casts Negative (Negative) LPF Urine Mucus Negative (Negative) Urine Other Rare Renal (Negative) Ur Culture Indicated? Yes Urine Glucose Negative (Negative) mg/dL Ethyl Alcohol < 3.0 (<10) mg/dL 07/03/24 18:10 Blood Culture - Pending Blood 07/03/24 15:54 Blood Culture - Pending Blood 07/03/24 14:15 Urine Culture - Pending Urine - Reflex from [id number] Documentation Fingerstick Glucose Start: 07/03/24 11:10 Freq: .Stat Status: Active Protocol: Activity Type Activity Date Activity User E-sign Co-sign Detail Recorded Client Recorded Date Recorded By Document 07/03/24 11:42 FABIANAG DAANGELINAON(3) [id number] 07/03/24 11:43 BKG DAEMON(4) Intake and Output - 24 Hour Total 07/03/24 10:45 thru 07/03/24 18:37 Intake Total 500 Balance 500 Weight 74.389 kg Intake: IV 500 Falls Risk Assessment History of Falls No History 07/03/24 18:37 Contributing Factors Confusion,Unstable 07/03/24 18:37 Ambulatory Aids Uses ambulatory device + 07/03/24 18:37 Tubes/Lines With any additional score 07/03/24 18:37 Gait Evaluation W/any additional score 07/03/24 18:37 Cognition Cognitive impairment 07/03/24 13:27 Fall Total Score 76 07/03/24 18:37 Level of Risk Maximum Risk 07/03/24 18:37 Problems (Last Reviewed 07/03/24 @ 18:18 by Alexis Vera) Atrial flutter, paroxysmal (Acute) Acute UTI (Acute) Pneumonia (Acute) Atrial flutter (Acute) v v v v v v v v v Sending and/or Receiving Nurses: Please use comment section below to note any information pertinent to the patient hand-off not included above. Information / Comments: PT presented to ED via EMS d/t increased weakness and confusion. Pt pleasantly confused and is at bedside. PT taken for c-scan which was negative, Fond to have new onset A-FIB w/ RVR. PT given diltiazem for a total 35 mg which brought HR to 70's to 80's. PT noted to be at 107 BPM on arrival to med/surg unit. Bed alarms set and is in room with patient at this time Report received from: Liliya Chi RN
[2024-07-04 04:15] VITALS: BP 107/70; PULSE 74; RESP 18; TEMP 36.8; O2SAT 96
[2024-07-04 06:51] LABS: Abs Immature Grans 0.04 10^3/uL (0.0-0.06); Absolute Basophil Count 0.04 10^3/uL (0.0-0.2); Absolute Eosinophil Count 0.29 10^3/uL (0.0-0.7); Absolute Lymphocyte Count 0.97 10^3/uL (1.2-3.4); Absolute Monocyte Count 0.83 10^3/uL (0.1-0.8); Absolute Neutrophil Count 7.01 10^3/uL (1.2-6.7); Basophils % 0.4 %; Eosinophils % 3.2 %; HCT 33.4 % (40.0-50.0); HGB 11.5 g/dL (13.5-17.5); Immature Grans % 0.4 %; Lymphocytes % 10.6 %; MCH 32.1 pg (27.0-33.0); MCHC 34.4 % (32.0-36.0); MCV 93 fL (80-95); MPV 10.3 fL (8.0-11.0); Neutrophils % 76.4 %; Platelet Count 204 10^3/uL (130-400); RBC 3.58 10^6/uL (4.36-5.78); RDW 13.1 % (11.8-14.1); RDW-SD 44.9 fL; WBC 9.18 10^3/uL (4.4-10.8)
[2024-07-04 07:07] LABS: Anion Gap 7.2 mmol/L (3-11); BUN 21 mg/dL (7-18); CO2 25.8 mmol/L (21.0-32.0); CREATININE 1.3 mg/dL (0.70-1.30); Calcium 7.9 mg/dL (8.5-10.1); Chloride 103 mmol/L (98-107); Estimated GFR 54.85 (mL/min/1.73m2); Glucose 112 mg/dL (74-106); Magnesium 1.9 mg/dL (1.8-2.4); Sodium 136 mmol/L (136-145)
[2024-07-04 07:46] VITALS: BP 101/69; PULSE 58; RESP 18; TEMP 36.2; O2SAT 93
[2024-07-04] MEDS: cefTRIAXone 2 GM/50 ML BAG IVPB (08:05)
[2024-07-04] MEDS: Normal Saline Flush 10 ML SYR IVP ×4 (08:05→23:49)
[2024-07-04] MEDS: Lisinopril 20 MG TAB PO (08:06)
[2024-07-04] MEDS: QUEtiapine 25 MG TAB PO ×2 (08:06→23:48)
[2024-07-04] MEDS: dilTIAZem 60 MG TAB PO ×3 (08:06→20:32)
[2024-07-04] MEDS: DOXYCYCLINE 100 MG in Normal Saline 100 ML IVPB ×2 (08:45→21:22)
--- NOTE | 2024-07-04 09:35 | NUR.NOTE ---
Nursing Note: Per patients he has been complaining of painful urination.
--- NOTE | 2024-07-04 10:00 | INITIAL_ITS ---
Date of service: 07/04/24 Time of Service: 10:00 Care Management Initial Assmt Initial Assessment Reason for Hospitalization: Pneumonia, Acute UTI, Aflutter Functional Status/Living Situation Patient Presentation: Siddharth was lying in bed and appeared to be sleeping when attempted to meet with him. His Rosie was at his bedside reading a book and provided information for the purpose of this initial assessment. Per , they have a son and daughter who live locally and are very supportive. Siddharth is beginning to require a lot of support at home. They are connected with the [facility] and have support services through [facility] Sat, Sat and . Siddharth has been reluctant to accept help from anyone other than his so she mainly uses their services for respite. Siddharth requires support bathing, dressing, toileting and recently started needing assistance feeding himself. Siddharth is followed by Palliative, has LTM and his is currently trying to find SNF level care for him. Town of Residence: [place] Resides with: Spouse (Rosie) Significant Other/Family: Local Caregiver/Guardian: Rosie Natural Supports: Son and Daughter Employment Status: Retired Instrumental Activities of Daily Living (ADLs): Requires support Medications Medication Management: No Issues/Barriers identified Physical Functioning/Mobility Assistive Device: Walker Advance Directives Advance Directives: Do you have an Advance Directive: Y 07/03/24 18:05 AD On File at [facility]: Y 07/03/24 18:05 Date Asked 07/03/24 07/03/24 11:12 AD Date Reviewed 07/03/24 07/03/24 18:05 COLST On File at [facility] Yes 04/03/22 09:18 COLST Date Scanned 01/16/21 04/03/22 09:18 Code Status Resuscitation Status DNR/DNI Insurance Coverage/Financial Issues Insurance: CIGNA HMO/POS Cigna Medicare Replacement Medicaid of [place] Medicare Part A & B Care Team Visit Care Team Role Provider Type Gerri Lan NP Primary Care Provider NURSE PRACTITIONER [facility] Other Providers OTHER Truong Mcrae MD Emergency Provider [facility] STAFF PHYSICIAN Sanjay Veronica MD Admit Provider [facility] STAFF PHYSICIAN Attending Provider Discharge Potential Discharge Needs: PT Evaluation and PCP F/U Appt Anticipated Barriers to Discharge: None Identified Patient/Family Education Needs: Review discharge instructions, discuss Ask Me Three Plan: SNF vs. home with increased caregiver supports and New [facility] services. CM will send referrals to the [facility] at 's request. CM will continue to follow and support discharge plan. 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) has gotten lost in neighborhood Urinary incontinence due to cognitive impairment (Chronic) intermittent Unawareness (Chronic) at risk for crossing street Constipation, chronic (Chronic) Deficit in activities of daily living (ADL) (Chronic) cues and reminds him Health care proxy on file (Acute) DNI (do not intubate) (Acute) DNR (do not resuscitate) (Acute) POLST (Physician Orders for Life-Sustaining Treatment) (Acute) Alzheimer disease (Chronic) Executive function deficit (Chronic) Anomia (Chronic) Requires assistance with activities of daily living (ADL) (Chronic) Goals of care, counseling/discussion (Acute) Palliative care patient (Acute) Dementia (Chronic) 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 is manager ui Mitral valve regurgitation (Acute) Synovial cyst of popliteal space (Acute) left leg- causes no problem to pt Paroxysmal atrial fibrillation (Acute 04/15/14) has seen cardiology [facility], asa, decided against eliquis at this time Hyperlipidemia (Acute) Essential hypertension (Acute) Carotid artery stenosis (Acute) left[place] BPH without urinary obstruction (Acute) Anemia (Acute) Medical History Tick bite with target lesion, May 2021 Chest pain History of tobacco use History of chronic obstructive pulmonary disease History of atrial fibrillation Hypercholesteremia Hypertension Cataract Anticoagulated on warfarin A-fib; goal 2-3 Surgical History Status post carpal tunnel release Status post cataract extraction and insertion of intraocular lens of right eye (04/20/15) Status post cataract extraction and insertion of intraocular lens of left eye (02/20/19) History of surgical removal of ganglion cyst Open Carpal Tunnel release LEFT - Pt spouse denies carpal tunnel Family History Mother , 75 Lung cancer Substance abuse Father , 84 Essential hypertension Hyperlipidemia Dementia per , multiple members of father's family with dementia Maternal Grandfather No problems noted. Paternal Grandfather , 68 Essential hypertension Heart disease Hyperlipidemia Stroke Grandmother , 92 No problems noted. Paternal Grandmother , 84 Diabetes Heart disease Son No problems noted. 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, [employer] Pets and animals: No Do you think of yourself as: straight/heterosexual Current gender identity: male What is your relationship status?: How often do you talk on the phone with friends or family?: never How often do you get together with friends or relatives?: once per week How often do you attend mandaeism or evangelical services?: decline to answer Do you belong to any clubs or organized social groups?: no Panel score (0-1 are the most socially isolated patients): 1 What type of physical activity do you participate in: walking Duration: 15-30 minutes/day Frequency: 3-4 times per week Radha/Yarsani: No preference Special radha needs: No Seatbelt use: always Drive intox or ride w/intox inventory associate and driver: No Working smoke detector in home: Yes Fire extinguisher in home: Yes Do you feel safe at home: Yes Do you feel safe in your relationship?: Yes Additional Social history: Siddharth has been to Maria L for 57 years. Their 2 children live locally, daughter Sharita and son Bienvenido. 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 He went out on disability for his back at age 64. He sees his children and a friend, Saeed, who lives nearby. Except for Amys, Siddharth goes everywhere with Maria L. He cannot stay alone anymore. He does wander outside of their house. He has gotten lost when he went outside of visual range of their home. Maria L has been worried about his memory for 10+ years. He saw [facility] memory clinic about 10 years ago. They said he was fine then, per Maria L, though she knew better. He does still cross [address] to get to [place]; not a safe pedestrian. SDOH(Care Management) Screening Will the Patient Participate in the Screening?: Yes Do you worry about having a steady place to live?: no Problems where you live: no known problems In the past 12 months, have you had to go without electric, gas, oil or water in your home?: no Have you or anyone in your house had to go without enough food to eat?: no Has lack of transportation kept you from medical appointments or from doing things needed for daily living?: no Has anyone in your support network made you feel unsafe for any reason?: no
--- NOTE | 2024-07-04 11:58 | PHA.REVIEW2 ---
Pharmacy Admission Review Admission Clinical Review Admission Pharmacy Review: Atrial flutter, paroxysmal (Acute) Acute UTI (Acute) Pneumonia (Acute) Atrial flutter (Acute) Sulfa (Sulfonamide Antibiotics) Adverse Reaction (Severe, Verified 07/03/24 11:06) DROP IN BLOOD COUNT Resuscitation Status DNR/DNI Height 5 ft 10 in Weight 74.389 kg Pharmacy Admission Review Renal Dosing Renal Dosing: BUN 21 mg/dL (7-18) H 07/04/24 06:28 Creatinine 1.3 mg/dL (0.70-1.30) 07/04/24 06:28 Medications needing adjustments: Reviewed (CrCl 46.1 mL/min, BUN decreased from 24 and SCr decreased from 1.5) List of meds needing interventions: Current medications are okay Anticoagulation Anticoagulation: Hgb 11.5 g/dL (13.5-17.5) L D 07/04/24 06:28 Hct 33.4 % (40.0-50.0) L 07/04/24 06:28 Plt Count 204 10^3/uL (130-400) 07/04/24 06:28 INR 1.2 (0.9-1.1) H 07/03/24 12:10 Creatinine 1.3 mg/dL (0.70-1.30) 07/04/24 06:28 DVT Prophylaxis: Reviewed (Hgb decreased from 13.5) Medications: Enoxaparin (40mg daily) Relevant Labs Relevant Labs: Sodium 136 mmol/L (136-145) 07/04/24 06:28 Potassium 4.0 mmol/L (3.5-5.1) 07/04/24 06:28 Chloride 103 mmol/L (98-107) 07/04/24 06:28 Magnesium 1.9 mg/dL (1.8-2.4) 07/04/24 06:28 Electrolytes, C-Reactive P, ESR: Reviewed Cardiac Review BP, HR, EF%: Reviewed (BP WNL and HR 58) QTc Review QTc: Reviewed (501 from 07/03/24) IV to PO Switch IV Medications: Reviewed (ceftriaxone, diltiazem, doxycycline) Home Meds Home Med List reviewed: Intervened Relevent Home Meds Not ordered & why?: Changed rivastigmine patch to patients own order. Called nursing to see if this could be brought in, brought in 1 patch this morning. Verified patch, labeled and sent back up to floor. Told nursing she will need to bring in more if patient remains hospitalized. Current Meds Current Medication Order Review: Reviewed Comments: Lorazepam PRN for agitation (patient has severe dementia) Pharmacy Antibiotic Review Relevant Labs: WBC 9.18 10^3/uL (4.4-10.8) 07/04/24 06:28 Temperature 36.2 C Temperature 36.8 C Microbiology 07/03/24 14:15 Urine Culture - Preliminary Urine - Reflex from Ua Gram Positive Tiny,Mixed Pharmacy Antibiotic Activity: C/S review and Reviewed, no change Comments: Patient is on ceftriaxone and doxycycline, day 1, for pneumonia/UTI. WBC decreased from 14.16. Urine culture growing gram positive tiny, blood cultures pending. Per morning meeting, waiting on cultures and will then hopefully transition to PO meds and discharged.
--- NOTE | 2024-07-04 12:20 | IN_ITS ---
Date of service: 07/04/24 Time of Service: 11:45 PT Notes Visit Reasons: RLL Pneumonia, UTI, PAF Inpatient Physical Therapy Evaluation I certify the need for these services as being medically necessary and skilled as furnished under this plan of treatment while under my care. Please sign and return within 14 days if you agree with the plan of care listed below.? Thank you for this referral! ? Referring Physician? Date Referring Doctor:? Sanjay Veronica PT Orders: PT CONSULT for weakness Precautions: dementia, fall risk Patient Profile/Admitting Diagnosis:? The patient is an 84 yo male adm on 07/03/24 with pneumonia, UTI, aflutter with increased weakness and confusion with advanced dementia being taken care of at home by his . Past Medical History: Atrial flutter, paroxysmal (Acute) Acute UTI (Acute) Pneumonia (Acute) Atrial flutter (Acute) Left leg swelling (Acute) Trigger finger, left middle finger (Acute) 40 mg Depo-medrol: 03/11/23Cough (Acute) Wandering behavior due to dementia (Chronic) has gotten lost in neighborhoodUrinary incontinence due to cognitive impairment (Chronic) intermittent Unawareness (Chronic) at risk for crossing streetConstipation, chronic (Chronic) Deficit in activities of daily living (ADL) (Chronic) cues and reminds himHealth care proxy on file (Acute) DNI (do not intubate) (Acute) DNR (do not resuscitate) (Acute) POLST (Physician Orders for Life-Sustaining Treatment) (Acute) Alzheimer disease (Chronic) Executive function deficit (Chronic) Anomia (Chronic) Requires assistance with activities of daily living (ADL) (Chronic) Goals of care, counseling/discussion (Acute) Palliative care patient (Acute) Dementia (Chronic) 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 is caretakerMitral valve regurgitation (Acute) Synovial cyst of popliteal space (Acute) left leg- causes no problem to ptParoxysmal atrial fibrillation (Acute 04/15/14) has seen cardiology [facility], asa, decided against eliquis at this timeHyperlipidemia (Acute) Essential hypertension (Acute) Carotid artery stenosis (Acute) left-[facility] BPH without urinary obstruction (Acute) Anemia (Acute) Medical History Tick bite with target lesion, May1Chest pain History of tobacco use History of chronic obstructive pulmonary disease History of atrial fibrillation Hypercholesteremia Hypertension Cataract Anticoagulated on warfarin A-fib; goal 2-3 Surgical History Status post carpal tunnel release Status post cataract extraction and insertion of intraocular lens of right eye (04/20/15) Status post cataract extraction and insertion of intraocular lens of left eye (02/20/19) History of surgical removal of ganglion cyst Open Carpal Tunnel release LEFT - Pt spouse denies carpal tunnel Medications: See chart Social History/Home Situation: Lives with his in [facility]. Normally able to walk with encouragement, some assist from her. Has been having more difficulty with all activity recently, including walking, feeding himself. Subjective: Yeah Objective: attempted to see patient at 845 this am but unable to arouse. not present. present for later session today. Mental Status: Patient with eyes closed throughout most of session. Pain: No grimacing observed during today's session. Vital Signs: Monitored by RN ROM/Strength: Upper extremities: AAROM secondary to somnolence Lower extremities: AAROM secondary to somnolence Sensation: unable to accurately assess. Soft tissue/edema: no gross abnormalites noted Bed Mobility: Non responsive to requests for movement. right sidelying to supine with max x 1. HOB elevated with mechanics of bed. Transfers: unable at this time Gait:unable at this time Balance: unable to assess [facility] AM-PAC 6 clicks Basic Mobility Inpatient Short Form: Raw Score:???6? CMS Score: 100% Informed Consent/Education:? Patient instructed in purpose of PT consult and plan of care and is agreeable Assessment:? Patient is an 84? year old male adm on 07/03/24 for pneumonia, UTI, aflutter with recent decline in function and mental status. Poor participation today secondary to medication administered earlier secondary to agitation. Patient with improve participation with present.? Patient presents with decreased strength, decreased functional mobility, decreased balance and inability to ambulate. The patient would benefit from skilled inpatient services to improve these impairments to maximize function and safety. Unable to accurately assess his functional status secondary to somnolence. Patient is assessed as:? Low 16275??complexity based on the following: History: dementia Examination: see above Presentation: Stable and uncomplicated? Decision Making:? Low (0 history, 1-2 exam, stable/predictable, easy 20) Physical Therapy Goals: 3 days Able to get in/out of bed at baseline per his . Able to perform sit to/from stand at baseline per his . Able to walk 30 feet at baseline per his All equipment needs met. Independent with home exercise program Plan of Care/Treatment Plan: 1-2x/day, 7 days/week x 1 week. Plan of care has been reviewed with the SUPERVISOR [employer] providing the service under Physical Therapy direction. Initiate Physical Therapy intervention for strengthening, bed mobility, transfers, gait, stairs, balance training, use of assistive device. DISCHARGE RECOMMENDATIONS: Will need to be 1 assist of to allow him to return home with her. Billing Charges: Treatment Units Time Duration Manual Therapy(11032) Hands-on techniques to modulate pain increase joint range of motion reduce or eliminate soft tissue swelling, inflammation, or restriction facilitate relaxation and improve contractile and non-contractile tissue extensibility ? ? Therapeutic Procedures (83895) Instruction in therapeutic exercises to develop strength and endurance, range of motion and flexibility. HEP instruction and review: Provided skilled instruction in proper exercise performance: Provided skilled manual cues to facilitate proper muscle recruitment and/or movement pattern Neurological Re-Education(08878) To improve balance, coordination, kinesthetic and proprioceptive sensations. ? ? Ultrasound(15048) To promote healing. ? ? Gait Training(64059) ? ? Therapeutic Activity(93983) Instruction in dynamic activities with one on one patient contact by the provider to improve functional performance as follows: 1 ? 17 ? Self Care Training(60993) ? ? E-Stim (Attended)(93548) ? ? Low IE(23971) 1 10 Mod IE(01075) ? ? High IE(03762) ? ? Time Coded Treatment Time ? 17 Total Treatment Time ? 27
[2024-07-04 12:27] VITALS: BP 116/99; PULSE 89; RESP 16; TEMP 36.2; O2SAT 94
[2024-07-04] MEDS: LORazepam 1 MG TAB PO ×2 (13:11→20:32)
--- NOTE | 2024-07-04 13:52 | NUR.NOTE ---
Nursing Note:Patient combative with personal care. Grabbing and hitting at nurses during elisa care, unable to change the linens at this time.
--- NOTE | 2024-07-04 13:53 | W.PM.PROGNOT ---
Date of Service Date of service: 07/04/24 Time of Service: 13:53 Assessment and Plan Assessment and plan (1) Pneumonia: Status: Acute Assessment and plan: met criteria for severe sepsis with elevated white count and heart rate, source pneumonia. Continue ceftriaxone/doxycycline day 2 respiratory status stable. Qualifiers: Laterality: right Lung location: lower lobe of lung Pneumonia type: due to unspecified organism Qualified Code(s): J18.9 - Pneumonia, unspecified organism (2) Acute UTI: Status: Acute Assessment and plan: Continue Rocephin while cultures pending (3) Atrial flutter, paroxysmal: Status: Acute Assessment and plan: rate controlled. continue diltiazem (4) Alzheimer disease: Status: Chronic Assessment and plan: Patient has severe end-stage dementia with agitated behavior exacerbated by his acute illness and being in unfamiliar surroundings at the hospital and away from his . Continue usual dosing of Seroquel with as needed dosing orally and as needed Ativan with shorter intervals and increased dose because of severe agitation. Patient will be kept comfortable and does have a 24-hour sitter to avoid harm to self or others as well as redirection which is at this time affect. Patient is a DNR/DNI. discussed with DR Veronica Subjective Subjective Patient reports: no new complaints, tolerating liquids well, tolerating a regular diet and afebrile; denies shortness of breath Interval history since last seen: Remains pleasantly confused at baseline with no behavioral disturbances today. Is tolerating oral intake Exam Const General: no acute distress, frail appearing and ill appearing chronically Nutritional Appearance: thin Orientation: alert, awake, not oriented x3 and confused (at baseline) HENMO Head: normal to inspection, normocephalic and atraumatic Mouth: oral mucosae normal Eyes General: appearance normal, both eyes and all related structures Chest Chest: normal inspection of the chest Resp Effort & Inspection: normal respiratory effort Auscultation: diminished lung sounds Cardio Rate: regular rate Rhythm: regular rhythm GI Inspection: normal to inspection Palpation: soft Auscultation: normal bowel sounds Skin General skin exam: no rashes or lesions noted Extrem General: normal to inspection, full ROM and no pedal edema Objective Last Vital Signs Temp 36.2 C L 07/04/24 12:27 Pulse 89 07/04/24 12:27 Resp 16 07/04/24 12:27 BP 116/99 H 07/04/24 12:27 Pulse Ox 94 07/04/24 12:27 Laboratory Results - last 24 hr 07/03/24 07/04/24 14:15 06:28 WBC 9.18 RBC 3.58 L Hgb 11.5 L D Hct 33.4 L MCV 93 MCH 32.1 MCHC 34.4 RDW 13.1 Plt Count 204 MPV 10.3 Immature Gran % 0.4 Neutrophils % 76.4 Lymphocytes % 10.6 Monocytes % 9.0 Eosinophils % 3.2 Basophils % 0.4 Nucleated RBC % 0.0 Absolute Neutrophils 7.01 H Absolute Lymphocytes 0.97 L Absolute Monocytes 0.83 H Absolute Eosinophils 0.29 Absolute Basophils 0.04 Sodium 136 Potassium 4.0 Chloride 103 Carbon Dioxide 25.8 Anion Gap 7.2 BUN 21 H Creatinine 1.3 Est GFR (CKD-EPI 2020) 54.85 Glucose 112 H Calcium 7.9 L Magnesium 1.9 Urine Color Yellow Urine Clarity Clear Urine pH 6.5 Ur Specific [place] 1.015 Urine Protein Negative Urine Ketones Negative Urine Blood Trace-intact H Urine Nitrite Negative Urine Bilirubin Negative Urine Urobilinogen 0.2 Ur Leukocyte Esterase Moderate H Urine RBC 0-2 Urine WBC >50 H Ur Epithelial Cells Rare Urine Crystals Negative Urine Bacteria Rare Urine Casts Negative Urine Mucus Negative Urine Other Rare Renal Ur Culture Indicated? Yes Urine Glucose Negative Time Spent with Patient Time Spent with Patient: 35-49 minutes Time was spent: preparing to see the patient(eg.review tests), obtaining and/or reviewing separately [facility], ordering medications,tests, procedures, indepentently interpreting results and counseling the patient
[2024-07-04 19:39] VITALS: BP 105/88; PULSE 75; RESP 20; TEMP 36.9; O2SAT 96
[2024-07-04] MEDS: QUEtiapine 50 MG TAB PO (20:32)
[2024-07-04] MEDS: Enoxaparin 40 MG/0.4 ML SYR SC (21:21)
[2024-07-04 22:35] LABS: Legionella Ag Detection Urine Negative (Negative)
[2024-07-04 23:38] VITALS: BP 129/106; PULSE 74; RESP 20; TEMP 36.8
[2024-07-04 23:48] VITALS: BP 129/106; PULSE 115
[2024-07-04] MEDS: dilTIAZem 25 MG/5 ML VIAL 15 MG IVP (23:48)
[2024-07-05] MEDS: Normal Saline Flush 10 ML SYR IVP (07:43)
[2024-07-05] MEDS: cefTRIAXone 2 GM/50 ML BAG IVPB (07:44)
[2024-07-05 07:48] VITALS: BP 135/82; PULSE 64; RESP 15; TEMP 36.1; O2SAT 97
[2024-07-05] MEDS: DOXYCYCLINE 100 MG in Normal Saline 100 ML IVPB (08:49)
[2024-07-05] MEDS: QUEtiapine 25 MG TAB PO (08:50)
[2024-07-05] MEDS: dilTIAZem 60 MG TAB PO ×2 (10:33→15:30)
[2024-07-05] MEDS: Acetaminophen 325 MG TAB PO (10:33)
[2024-07-05] MEDS: Lisinopril 20 MG TAB PO (10:33)
--- NOTE | 2024-07-05 11:38 | PT.INTREAT ---
PT Notes Visit Reasons: RLL Pneumonia, UTI, PAF Inpatient Physical Therapy Treatment Note [facility] Date: 07/05/24 SUBJECTIVE: Siddharth seated in recliner. OBJECTIVE: []? PAIN: obvious signs of pain but he is unable to tell me where. When he coughs he has grabbed at his right sided chest, but also his leg/hip on left VITALS: ?monitored by [facility] Therapeutic Activities ([id number]): Direct one-on-one instruction in dynamic activities to improve functional performance. ? BED MOBILITY/TRANSFERS? pt seated in recliner? Sit-stand: CGA? Stand-sit: CGA ? Provided skilled cues and instruction on performance and technique throughout. GAIT? Assistive Device: CULTURE ROOM WORKER? Weight bearing: full Assist: CGA ? Distance:?30'x2? Deviation: slow, shuffled gait? Exercises ?attempted ex while sitting but he was unable to follow any directions ? ASSESSMENT:?pain with coughing but also noted him grabbing at leg/hip on left during transfers. Unable to assess as he is not able to communicate due to his dementia PLAN: will continue to work on strength and functional mobility per PT POC. TREATMENT CODE/TIME: 23 min [id number]
--- NOTE | 2024-07-05 11:41 | W.PM.PROGNOT ---
Date of Service Date of service: 07/05/24 Time of Service: 11:41 Assessment and Plan Assessment and plan (1) Pneumonia: Status: Acute Assessment and plan: downstep to augmentin/doxy from ceftriaxone/doxycycline day 3/ respiratory status stable. no oxygen requirements prn inhalers if needed Qualifiers: Laterality: right Lung location: lower lobe of lung Pneumonia type: due to unspecified organism Qualified Code(s): J18.9 - Pneumonia, unspecified organism (2) Acute UTI: Status: Ruled-out Assessment and plan: cultures show insignificant mixed growth (3) Atrial flutter, paroxysmal: Status: Acute Assessment and plan: rate controlled. continue diltiazem (4) Alzheimer disease: Status: Chronic Assessment and plan: Patient has severe end-stage dementia with agitated behavior exacerbated by his acute illness and unfamiliar surroundings, new caregivers. continue seroquel and safety precautions. discussed with DR Veronica Subjective Subjective Patient reports: no new complaints, feels better, tolerating liquids well and tolerating a regular diet Interval history since last seen: pleasantly demented at baseline Exam Const General: no acute distress, frail appearing and ill appearing chronically Nutritional Appearance: thin Orientation: alert, awake, not oriented x3 and confused (at baseline) HENMT Head: normal to inspection, normocephalic and atraumatic Mouth: oral mucosae normal Eyes General: appearance normal, both eyes and all related structures Chest Chest: normal inspection of the chest Resp Effort & Inspection: normal respiratory effort Auscultation: diminished lung sounds Cardio Rate: regular rate Rhythm: regular rhythm GI Inspection: normal to inspection Palpation: soft Auscultation: normal bowel sounds Skin General skin exam: no rashes or lesions noted Extrem General: normal to inspection, full ROM and no pedal edema Objective Last Vital Signs Temp 36.1 C L 07/05/24 07:48 Pulse 64 07/05/24 07:48 Resp 15 07/05/24 07:48 BP 135/82 07/05/24 07:48 Pulse Ox 97 07/05/24 07:48 Time Spent with Patient Time Spent with Patient: 35-49 minutes Time was spent: preparing to see the patient(eg.review tests), obtaining and/or reviewing separately otained hiistory, ordering medications,tests, procedures and indepentently interpreting results
[2024-07-05] MEDS: QUEtiapine 50 MG TAB PO (18:44)
[2024-07-05] MEDS: LORazepam 1 MG TAB PO (18:44)
[2024-07-05 23:00] VITALS: BP 158/62; PULSE 42; RESP 22; TEMP 36.9; O2SAT 95
[2024-07-05] MEDS: Amoxicillin 875/Clav. 125 TAB PO (23:03)
[2024-07-05] MEDS: Enoxaparin 40 MG/0.4 ML SYR SC (23:04)
[2024-07-05] MEDS: Doxycycline Hyclate 100 MG CAP PO (23:04)
--- NOTE | 2024-07-06 07:22 | PCNE_ITS ---
Date of service: 07/06/24 Time of Service: 07:23 History of Present Illness History of Present Illness Chief Complaint: pneumonia and dementia Narrative: Siddharth is well known to me. I have been following him through Palliative Care for over 2 years. He has become increasingly difficult for his to manage. At one time he was a little combative but that is unusual for him. his has worked on getting him into a nearby prison. She is hoping to have him placed at health [facility] re[facility]. Siddharth was found to have severe weakness came to the emergency room and was found to have pneumonia. He also had A-fib a flutter. He was started on antibiotics. Personnel has found that he is cooperative but needs time to acclimate to what they are asking. Sometimes he is a bit combative. Consults Consult date: 07/06/24 Requesting physician: Sanjay Veronica Assessment and Plan Assessment and plan (1) Palliative care patient: Status: Acute (2) Paroxysmal atrial fibrillation: Status: Acute (3) Dementia: Status: Chronic Qualifiers: Dementia type: Alzheimer's disease Alzheimer's disease onset: late- onset Dementia behavioral disturbance: without behavioral disturbance Q ualified Code(s): G30.1 - Alzheimer's disease with late onset; F02.80 - Dementia in other diseases classified elsewhere without behavioral disturbance (4) Pneumonia: Status: Acute Assessment and plan: Pneumonia continue with antibiotics COPD he is unable to follow instructions for inhalers It was decided 10 years ago not to put him on anticoagulation for his A-fib a flutter. I think it was a small decision given the fact that his dementia has definitely reached end-stage. All of my conversations with his and focused on comfort measures Dementia the patch that he is on works great. It keeps him from having aggressive assertive behavior. Staff should be using this first and then using Seroquel as a second medication. I have spoken with his and she has brought these patches in. Siddharth really likes country and Western singing. If the TV is going to be left on he would prefer that it is set to country in [place] Hopefully he will be able to get to health and rehab so his can come by to see him. He definitely needs strengthening but more importantly he needs placement. Discussed briefly with hospitalist Qualifiers: Pneumonia type: due to unspecified organism Laterality: right Lung location: lower lobe of lung Qualified Code(s): J18.9 - Pneumonia, unspecified organism Review of Systems Narrative: Siddharth was unable to give me any review of systems. I know when I am seeing him at home that he mostly just smiles at me and looks at his . PFSH All Active Problems (Updated 07/05/24 @ 15:14 by Angeles Toth NP) Atrial flutter, paroxysmal (Acute) Pneumonia (Acute) Atrial flutter (Acute) Left leg swelling (Acute) Trigger finger, left middle finger (Acute) 40 mg Depo-medrol: 03/11/23 Cough (Acute) Wandering behavior due to dementia (Chronic) has gotten lost in neighborhood Urinary incontinence due to cognitive impairment (Chronic) intermittent Unawareness (Chronic) at risk for crossing street Constipation, chronic (Chronic) Deficit in activities of daily living (ADL) (Chronic) cues and reminds him Health care proxy on file (Acute) DNI (do not intubate) (Acute) DNR (do not resuscitate) (Acute) POLST (Physician Orders for Life-Sustaining Treatment) (Acute) Alzheimer disease (Chronic) Executive function deficit (Chronic) Anomia (Chronic) Requires assistance with activities of daily living (ADL) (Chronic) Goals of care, counseling/discussion (Acute) Palliative care patient (Acute) Dementia (Chronic) 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 is kettle hand Mitral valve regurgitation (Acute) Anemia (Acute) BPH without urinary obstruction (Acute) Carotid artery stenosis (Acute[place] [place]ential [place] (Acute) Hyperlipidemia (Acute) Paroxysmal atrial fibrillation (Acute 04/15/14) has seen cardiology [facility], asa, decided against eliquis at this time Synovial cyst of popliteal space (Acute) left leg- causes no problem to pt Medical History Tick bite with target lesion, May 2021 Chest pain History of tobacco use History of chronic obstructive pulmonary disease History of atrial fibrillation Hypercholesteremia Hypertension Cataract Anticoagulated on warfarin A-fib; goal 2-3 Surgical History Status post carpal tunnel release Status post cataract extraction and insertion of intraocular lens of right eye (04/20/15) Status post cataract extraction and insertion of intraocular lens of left eye (02/20/19) History of surgical removal of ganglion cyst Open Carpal Tunnel release LEFT - Pt spouse denies carpal tunnel Family History Mother , 75 Lung cancer Substance abuse Father , 84 Essential hypertension Hyperlipidemia Dementia per , multiple members of father's family with dementia Maternal Grandfather No problems noted. Paternal Grandfather , 68 Essential hypertension Heart disease Hyperlipidemia Stroke Grandmother , 92 No problems noted. Paternal Grandmother , 84 Diabetes Heart disease Son No problems noted. 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, [employer] Pets and animals: No Do you think of yourself as: straight/heterosexual Current gender identity: male What is your relationship status?: How often do you talk on the phone with friends or family?: never How often do you get together with friends or relatives?: once per week How often do you attend confucianist or buddhism services?: decline to answer Do you belong to any clubs or organized social groups?: no Panel score (0-1 are the most socially isolated patients): 1 What type of physical activity do you participate in: walking Duration: 15-30 minutes/day Frequency: 3-4 times per week Radha/Rastafari: No preference Special radha needs: No Seatbelt use: always Drive intox or ride w/[employer] o[employer] company driver: No Working smoke detector in home: Yes Fire extinguisher in home: Yes Do you feel safe at home: Yes Do you feel safe in your relationship?: Yes Additional Social history: Siddharth has been to Maria L for 57 years. Their 2 children live locally, daughter Sharita and son Bienvenido. 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 He went out on disability for his back at age 64. He sees his children and a friend, Saeed, who lives nearby. Except for Saeed's, Siddharth goes everywhere with Maria L. He cannot stay alone anymore. He does wander outside of their house. He has gotten lost when he went outside of visual range of their home. Maria L has been worried about his memory for 10+ years. [place] [facility] [place] about 10 years ago. They said he was fine then, per Maria L, though she knew better. He does still cross [address] [place]; not a safe pedestrian. Exam Narrative Exam Narrative: Siddharth is lying comfortably on his left side. He is cooperative with the exam. His heart is rate controlled presently. His lungs are clear but there is definite decrease air movement. Abdomen is nontender. Results Last Vital Signs Temp 98.4 F 07/05/24 23:00 Pulse 42 L 07/05/24 23:00 Resp 22 07/05/24 23:00 BP 158/62 H 07/05/24 23:00 Pulse Ox 95 07/05/24 23:00 Labs 07/06/24 11:45 07/04/24 06:28
--- NOTE | 2024-07-06 09:41 | PDOC.CMPRO ---
Date of service: 07/06/24 Time of Service: 09:41 Care Management Progress Note Progress Note Text Progress Note Text: Siddharth was lying in bed with his sitting next to him. He is watching TV, more alert today and offered a wave to CM. CM spoke with Maria L and she expresses concern about her ability to care for him at home as he is becoming more resistive to changing (his adult briefs) and unable to get up the stairs to his bedroom. CM asked Maria L about Sampson behavior at home being difficult and Maria L denies being afraid of him and feels she can handle him pretty well. Maria L states that his PCP prescribes a Rivastigmine patch which she finds is very helpful and she noted a small change in his attitude this morning when he wasn't wearing it. CM also spoke with Siddharth's community CM Elisabeth from [facility] and she is advocating for SNF for STR, CM advised referrals have been sent to the [facility] and [facility]. They are hoping for something local, because his Maria L is very supportive and will sit with him daily. Discharge Potential Discharge Needs: PCP F/U Appt Anticipated Barriers to Discharge: None Identified Patient/Family Education Needs: Review discharge instructions, discuss Ask Me Three Transportation: Facility Transport Plan: Siddharth has a bed offer at [facility], [place] is pending and may take 1-2 days. The plan is to discharge to SNF for STR, which may transition into LTC placement. Maria L has already been in contact with [facility] today. Siddharth will transport via facility w/c van. CM will follow. SDOH(Care Management) Screening Will the Patient Participate in the Screening?: Yes Do you worry about having a steady place to live?: no Problems where you live: no known problems In the past 12 months, have you had to go without electric, gas, oil or water in your home?: no Have you or anyone in your house had to go without enough food to eat?: no Has lack of transportation kept you from medical appointments or from doing things needed for daily living?: no Has anyone in your support network made you feel unsafe for any reason?: no
[2024-07-06] MEDS: Doxycycline Hyclate 100 MG CAP PO ×2 (10:46→20:14)
[2024-07-06] MEDS: Amoxicillin 875/Clav. 125 TAB PO ×2 (10:46→20:14)
[2024-07-06] MEDS: dilTIAZem 60 MG TAB PO ×3 (10:46→20:15)
[2024-07-06] MEDS: Lisinopril 20 MG TAB PO (10:46)
[2024-07-06] MEDS: QUEtiapine 25 MG TAB PO ×2 (10:46→21:16)
--- NOTE | 2024-07-06 11:48 | W.PM.PROGNOT ---
Date of Service Date of service: 07/06/24 Time of Service: 11:48 Assessment and Plan Assessment and plan (1) Pneumonia: Status: Acute Assessment and plan: downstep to augmentin/doxy from ceftriaxone/doxycycline day 4/ no oxygen supplementation required Continue prn inhalers Qualifiers: Laterality: right Lung location: lower lobe of lung Pneumonia type: due to unspecified organism Qualified Code(s): J18.9 - Pneumonia, unspecified organism (2) Acute UTI: Status: Ruled-out Assessment and plan: cultures show mixed growth with gram-positive tiny 10-50,000 colonies (3) Atrial flutter, paroxysmal: Status: Acute Assessment and plan: Continue diltiazem and transition to extended release in the a.m. Rate was controlled on 16 mg of immediate release Cardizem 3 times a day (4) Alzheimer disease: Status: Chronic Assessment and plan: Severe end-stage dementia with agitated behavior exacerbated by his acute illness and unfamiliar surroundings, new caregivers; mostly noticeable during hygiene care. Continue seroquel and safety precautions. (5) Palliative care patient: Status: Acute Assessment and plan: Palliative care consult completed this morning please see notes As per discharge planning meeting discussion: -Patient has been agitated at home resulting in spouse calling for outside help; with police coming to the house once recently -patient has displayed signs of agressivity -Barriers to home discharge mentioned Discharge plan: [facility] and rehab pending [place] tomorrow Discussed with Dr. Eller Subjective Subjective Patient reports: no new complaints, tolerating liquids well, tolerating a regular diet, voiding w/o difficulty, bowel movement and afebrile; denies vomiting or shortness of breath Exam Narrative Exam Narrative: Constitutional The patient is a frail elderly patient with history of dementia sitting in chair with at bedside, feeding him the patient is unable to eat independently Neuro:alert and oriented to self, otherwise confused Resp:Clear lung bilaterally, decreased bases, unable to take deep breath when asked, weak cough Cardio: regular rhythm, S1, S2, no murmur, GI: Abdomen is not distended, soft and non tender, bowel sounds are present : Negative Costovertebral angle tenderness Psych: RASS 0-1 Objective Last Vital Signs Temp 36.9 C 07/05/24 23:00 Pulse 42 L 07/05/24 23:00 Resp 22 07/05/24 23:00 BP 158/62 H 07/05/24 23:00 Pulse Ox 95 07/05/24 23:00 Laboratory Results - last 24 hr 07/03/24 14:15 Urine Legionella Ag Negative Time Spent with Patient Time Spent with Patient: >50 minutes Time was spent: preparing to see the patient(eg.review tests), obtaining and/or reviewing separately otained hiistory, ordering medications,tests, procedures, referring, communicating with other health progressive care manager, indepentently interpreting results, counseling the patient and care coordination
[2024-07-06 12:06] LABS: HCT 37.4 % (40.0-50.0); HGB 12.9 g/dL (13.5-17.5); MCH 32.3 pg (27.0-33.0); MCHC 34.5 % (32.0-36.0); MCV 94 fL (80-95); MPV 10.1 fL (8.0-11.0); Platelet Count 281 10^3/uL (130-400); RBC 3.99 10^6/uL (4.36-5.78); RDW 13.2 % (11.8-14.1); RDW-SD 45.2 fL; WBC 6.77 10^3/uL (4.4-10.8)
--- NOTE | 2024-07-06 12:26 | PT.INTREAT ---
PT Notes Visit Reasons: RLL Pneumonia, UTI, PAF Inpatient Physical Therapy Treatment Note [facility] Date: 07/06/2024 SUBJECTIVE: I can go if you want. Pt received supine in bed with out gown on. OBJECTIVE: ?No obvious signs of pain, and denied when asked. ? Therapeutic Activities (63028j6 ): Direct one-on-one instruction in dynamic activities to improve functional performance. ? BED MOBILITY/TRANSFERS? Supine-sit: min A with max cues for initiating task ? Sit-stand: CGA ? Stand-sit: CGA ? Bed-Chair: CGA ? Provided skilled cues and instruction on performance and technique throughout. ? GAIT? Assistive Device: Trial 1# RW Trial 2 CHIEF OPERATIONS OFFICER? Weight bearing: FWB Assist: Trial 1 Min A for management of RW, cues to stay with RW and within frame; Trial 2# CHIEF OPERATIONS OFFICER Celia? Distance:? Trial #1 50 feet with 2 turns ,? Trial #2: 20 feet? with 1 turn? Deviation: Trial 1: reciprocal pattern, reduced knee flexion , early heel off BLE, Trial #2 reduced step length , increased lateral weight shift , early heel off flatfoot on weight acceptance ? ASSESSMENT:? Pt demonstrates impaired motor coordination/ control BLE, impaired ROM B ankles, and impaired balance strategies. He requires cues to initiate and sequence tasks. He demonstrates improved motor coordination with spontaneous movements/ not on command. He requires cues to attend to task. He demonstrates improvement in step length with RW however d/t dementia the RW may not be appropriate. He demonstrates preference to keep BUE folded behind his back during static stand. Attempted therex however pt unable to perform d/t cognitive impairment/dementia. PLAN: continue with strengthening, transfers balance and gait TREATMENT CODE/TIME: 78633 x1 / 21 minutes DISCHARGE RECOMMENDATION: SNF placement vs Home with services
--- NOTE | 2024-07-06 13:52 | PTTR_ITS ---
PT Notes Visit Reasons: RLL Pneumonia, UTI, PAF Inpatient Physical Therapy Treatment Note [facility] Date: 07/06/2024 SUBJECTIVE: I can go if you OBJECTIVE: ?No obvious signs of pain, and denied when asked. ? Therapeutic Activities (58221u1 ): Direct one-on-one instruction in dynamic activities to improve functional performance. ? BED MOBILITY/TRANSFERS? Sit - supine min A for BLE able to scoot along bed ? Sit-stand: CGA ? Stand-sit: CGA ? Bed-Chair: CGA ? Chair- bed: CGA cues for safe approach Provided skilled cues and instruction on performance and technique throughout. ? GAIT? Assistive Device: MANUFACTURING SHIFT SUPERVISOR? Weight bearing: FWB Assist: CGA / min A ? Distance:? 120feet ? with 4 turns? Deviation: reciprocal pattern with ? ASSESSMENT:? Pt requires 2 stand rest for ambulation with Right MANUFACTURING SHIFT SUPERVISOR for 120 feet. He demonstrates knee instability during coughing episode requiring min A for stability d/t proximal BLE musculature weakness PLAN: continue with strengthening, transfers, balance and gait TREATMENT CODE/TIME: 69114 x1 / 20 minutes DISCHARGE RECOMMENDATION: SNF placement
[2024-07-06 19:47] VITALS: BP 103/78; PULSE 64; RESP 18; TEMP 37; O2SAT 97
[2024-07-06] MEDS: QUEtiapine 50 MG TAB PO (20:14)
[2024-07-06] MEDS: Enoxaparin 40 MG/0.4 ML SYR SC (20:14)
[2024-07-06] MEDS: LORazepam 1 MG TAB PO (21:16)
[2024-07-07 07:17] VITALS: BP 175/79; PULSE 74; RESP 15; TEMP 36.1; O2SAT 93
[2024-07-07] MEDS: Lisinopril 20 MG TAB PO (09:51)
[2024-07-07] MEDS: Amoxicillin 875/Clav. 125 TAB PO (09:51)
[2024-07-07] MEDS: Doxycycline Hyclate 100 MG CAP PO (09:51)
[2024-07-07] MEDS: QUEtiapine 25 MG TAB PO ×2 (09:51→15:45)
[2024-07-07] MEDS: dilTIAZem CD 180 MG CAPCR PO (09:51)
--- NOTE | 2024-07-07 09:52 | PDOC.CMPRO ---
Date of service: 07/07/24 Time of Service: 09:57 Care Management Progress Note Discharge Potential Discharge Needs: Other (SNF) Anticipated Barriers to Discharge: Bed availability (waiting on [place]) Patient/Family Education Needs: Review discharge instructions, discuss Ask Me Three Transportation: Facility Transport Plan: Siddharth has a bed offer at [facility], [place] is pending and may take 1-2 days. The plan is to discharge to SNF for STR, which may transition into LTC placement. Maria L has already been in contact with [facility] today. Siddharth will transport via facility w/c van. CM will follow. SDOH(Care Management) Screening Will the Patient Participate in the Screening?: Yes Do you worry about having a steady place to live?: no Problems where you live: no known problems In the past 12 months, have you had to go without electric, gas, oil or water in your home?: no Have you or anyone in your house had to go without enough food to eat?: no Has lack of transportation kept you from medical appointments or from doing things needed for daily living?: no Has anyone in your support network made you feel unsafe for any reason?: no
[2024-07-07 11:30] VITALS: BP 110/72; PULSE 75; RESP 16; TEMP 36.2; O2SAT 96
--- NOTE | 2024-07-07 13:28 | W.PM.PROGNOT ---
Date of Service Date of service: 07/07/24 Time of Service: 13:28 Assessment and Plan Assessment and plan (1) Pneumonia: Status: Acute Assessment and plan: no oxygen supplementation required Continue prn inhalers Qualifiers: Pneumonia type: due to unspecified organism Laterality: right Lung location: lower lobe of lung Qualified Code(s): J18.9 - Pneumonia, unspecified organism (2) Acute UTI: Status: Ruled-out Assessment and plan: cultures show mixed growth with gram-positive tiny 10-50,000 colonies (3) Atrial flutter, paroxysmal: Status: Acute Assessment and plan: Continue diltiazem - IR divided doses s/t inability to swallow ER (4) Alzheimer disease: Status: Chronic Assessment and plan: Severe end-stage dementia with agitated behavior exacerbated by his acute illness and unfamiliar surroundings, new caregivers; mostly noticeable during hygiene care. Continue seroquel and safety precautions. (5) Palliative care patient: Status: Acute Assessment and plan: Palliative care consult completed this morning please see notes As per discharge planning meeting discussion: -Patient has been agitated at home resulting in spouse calling for outside help; with police coming to the house once recently -patient has displayed signs of agressivity -Barriers to home discharge mentioned Discharge plan: [facility] and rehab pending [place] Discussed with Dr. Eller Subjective Subjective Patient reports: no new complaints and feels better Exam Const General: no acute distress, frail appearing and ill appearing chronically Nutritional Appearance: thin Orientation: alert, awake, not oriented x3 and confused (at baseline) HENMT Head: normal to inspection, normocephalic and atraumatic Mouth: oral mucosae normal Eyes General: appearance normal, both eyes and all related structures Chest Chest: normal inspection of the chest Resp Effort & Inspection: normal respiratory effort Auscultation: diminished lung sounds Cardio Rate: regular rate Rhythm: regular rhythm GI Inspection: normal to inspection Palpation: soft Auscultation: normal bowel sounds Skin General skin exam: no rashes or lesions noted Extrem General: normal to inspection, full ROM and no pedal edema Objective Last Vital Signs Temp 36.2 C L 07/07/24 11:30 Pulse 75 07/07/24 11:30 Resp 16 07/07/24 11:30 BP 110/72 07/07/24 11:30 Pulse Ox 96 07/07/24 11:30 Time Spent with Patient Time Spent with Patient: 25-34 minutes Time was spent: preparing to see the patient(eg.review tests), ordering medications,tests, procedures, referring, communicating with other health critical care cns, indepentently interpreting results, counseling the patient and care coordination
--- NOTE | 2024-07-07 15:05 | PT.INTREAT ---
PT Notes Visit Reasons: RLL Pneumonia, UTI, PAF Inpatient Physical Therapy Treatment Note [facility] Date: 07/07/2024 SUBJECTIVE: OK let's go OBJECTIVE: ?No obvious signs of pain, and denied when asked.No facial grimacing noted Pt initially approached in am after receiving shower. He was difficult to arouse and then became agitated . He was reapproached in the afternoon and was amicable to participate.? Therapeutic Activities ([id number] ): Direct one-on-one instruction in dynamic activities to improve functional performance. ? BED MOBILITY/TRANSFERS? Sit-stand: min A to initiate ? Stand-sit: SBA ? Bed-Chair: CGA ? Chair- bed: CGA cues for safe approach Provided skilled cues and instruction on performance and technique throughout. ? GAIT? Assistive Device: TRAFFIC COUNTER? from his ; CGA from Therapist? Weight bearing: FWB Assist: CGA ? Distance:? 120feet ? with 5 turns? Deviation: shortened step length B increased posterior weight shift onto heels with toes up. ? ASSESSMENT:? Pt required min A to initiate stand this session from the stationary chair. Once transition from sit to stand was initiated by this PT he was able to achieve upright posture. Pt static stand with BUE clasped behind his back. Pt demonstrates difficulty with initiating gait with BUE behind back. once TRAFFIC COUNTER applied by ( pt unwilling to hold this PT hand) and instructed to start her walking pt able to initiate. He demonstrates increased posterior weight shift onto heels with toe extension noted this session as compared to prior session. PLAN: continue with strengthening, transfers, balance and gait TREATMENT CODE/TIME: 56491 x1 / 16 minutes DISCHARGE RECOMMENDATION: SNF placement
[2024-07-07 15:21] VITALS: BP 116/68; PULSE 70; RESP 16; TEMP 36.4; O2SAT 94
--- NOTE | 2024-07-07 15:38 | W.PM.DS.N ---
Date of service: 07/07/24 Time of Service: 15:38 DS: Diagnosis Discharge Diagnosis (1) Pneumonia: Status: Acute (2) Acute UTI: Status: Ruled-out (3) Atrial flutter, paroxysmal: Status: Acute (4) Alzheimer disease: Status: Chronic (5) Palliative care patient: Status: Acute Discharge Plan Disposition Patient Disposition: Senior Living Facility(SNF) Condition: Fair Discharge Details Reason For Visit: RLL Pneumonia, UTI, PAF Admit Date/Time: 07/03/24 17:53 Admit Provider: Sanjay Veronica Attending Provider: Sanjay Veronica [facility] Hospital Course: Mr. Monsalve is an 84-year-old gentleman with advanced dementia and cared for at home by his . He presented with increased weakness, confusion, and inability to stand, along with decreased intake. Evaluation revealed a UTI and right lower lobe pneumonia, managed with antibiotics. His hospital course was complicated by paroxysmal atrial flutter, for which his diltiazem dose was adjusted. His agitation due to dementia worsened initially but responded to increased Seroquel and intermittent Ativan. Patient remains a DNR/DNI. Patient diagnosed and treated for: Pneumonia: Acute pneumonia in the right lower lobe, received 5 days of antibiotics Monitoring urine cultures and symptoms. Symptomatic treatment for agitation. Acute UTI: treated with antibiotics x 5 days Atrial Flutter, Paroxysmal: Increased diltiazem to 60 mg three times a day with good rate control Alzheimer's Disease: Severe end-stage dementia exacerbated by hospitalization. Continued Seroquel and as-needed Ativan for agitation management. Patient has completed a full course of antibiotics. DISCHARGE INSTRUCTIONS: Continue medications as prescribed. Monitor for any new symptoms or changes in condition. Ensure follow-up appointments are scheduled as directed. DISCHARGE DIAGNOSES: Pneumonia, unspecified organism Acute UTI Paroxysmal atrial flutter Alzheimer's disease with severe dementia CONDITION AT DISCHARGE: Patient stable with improved symptoms of pneumonia and UTI, controlled atrial flutter, and managed dementia-related agitation. Discharged to [facility] stable. Home Meds and New Rx's Prescriptions: New diltiazem HCl [Cardizem] 60 mg Tablet 60 mg PO TID Qty: 90 0RF Continued lorazepam 0.5 mg tablet 0.5 mg PO BID PRN (Reason: anxiety) Qty: 30 1RF Rx Instructions: Give 1 for agitation; may repeat 30 minutes later lisinopril 20 mg tablet 20 mg PO DAILY Qty: 90 3RF rivastigmine 9.5 mg/24 hour patch 24 hour 9.5 mg transdermal DAILY Qty: 90 5RF quetiapine 25 mg tablet See Rx Instructions .ROUTE .COMPLEX Qty: 360 3RF Dose Instruction: TAKE 1 TABLET BY MOUTH IN THE MORNING AND 1 TABLET AT BEDTIME WITH AN EXTRA TABLET DAILY NEEDED FOR AGITATION Rx Instructions: TAKE 1 TABLET BY MOUTH IN THE MORNING AND 2 TABLET AT BEDTIME WITH AN EXTRA TABLET DAILY NEEDED FOR AGITATION Discontinued diltiazem HCl 120 mg capsule,extended release 24 hr 120 mg PO DAILY Discharge Instructions Activity:: Activity as Tolerated Equipment/Supplies:: Walker Diet:: As Tolerated DS: Summary Time Spent with Patient providing and/or coordinating discharge services: Greater than 30 minutes Status at Discharge Functional status at discharge: bed bound Overall status at discharge: patient is back to baseline Mental Status: other Speech and Movement: speech and movement normal Mood: other Affect: blunted Quality:SDOH Health Related Social Needs: No Data to Display Exam Const General: no acute distress, frail appearing and ill appearing chronically Nutritional Appearance: thin Orientation: alert, awake, not oriented x3 and confused (at baseline) HENMT Head: normal to inspection, normocephalic and atraumatic Mouth: oral mucosae normal Eyes General: appearance normal, both eyes and all related structures Chest Chest: normal inspection of the chest Resp Effort & Inspection: normal respiratory effort Auscultation: diminished lung sounds Cardio Rate: regular rate Rhythm: regular rhythm GI Inspection: normal to inspection Palpation: soft Auscultation: normal bowel sounds Skin General skin exam: no rashes or lesions noted Extrem General: normal to inspection, full ROM and no pedal edema Psych Mental Status: other Speech and Movement: speech and movement normal Mood: other Affect: blunted DS: Data Vitals/I&O Vitals and I&O: Vital Signs Temperature 36.4 C L 07/07/24 15:21 Temperature Source Skin 07/07/24 15:21 Pulse 70 07/07/24 15:21 Pulse Rhythm Regular 07/07/24 10:00 Pulse 106 H 07/03/24 18:10 Respiratory Rate 16 07/07/24 15:21 Respiratory Effort Normal, Non-Labored 07/07/24 10:00 Respiratory Depth Normal 07/07/24 10:00 Respiratory Pattern Normal 07/07/24 10:00 Blood Pressure 116/68 07/07/24 15:21 Blood Pressure Mean 86 07/03/24 18:01 Pulse Oximetry 94 07/07/24 15:21 Oxygen Delivery Method Room Air 07/07/24 15:21 Oxygen Flow Rate 0 07/07/24 15:21 Pain Level 0 07/07/24 15:21 Comment pt refused vital signs, became combative. Patient is medically cleared, awaiting placement. 07/06/24 14:05 Intake & Output 07/06/24 07/07/24 07/07/24 23:59 11:59 23:59 Weight 72.575 kg Other: Urine Color Yellow Urine Appearance Clear Urine Odor Normal Stool Size Small Stool Characteristics Formed Voiding Methods Diaper Diaper Incontinent Incontinent Data Completed and Pending Labs on day of discharge: Preliminary micro results at discharge 07/03/24 18:10 Blood Culture - Preliminary Blood NO GROWTH 72 HOURS 07/03/24 15:54 Blood Culture - Preliminary Blood NO GROWTH 72 HOURS PFSH All Active Problems (Updated 07/05/24 @ 15:14 by Agneles Toth NP) Atrial flutter, paroxysmal (Acute) Pneumonia (Acute) Atrial flutter (Acute) Left leg swelling (Acute) Trigger finger, left middle finger (Acute) 40 mg Depo-medrol: 03/11/23 Cough (Acute) Wandering behavior due to dementia (Chronic) has gotten lost in neighborhood Urinary incontinence due to cognitive impairment (Chronic) intermittent Unawareness (Chronic) at risk for crossing street Constipation, chronic (Chronic) Deficit in activities of daily living (ADL) (Chronic) cues and reminds him Health care proxy on file (Acute) DNI (do not intubate) (Acute) DNR (do not resuscitate) (Acute) POLST (Physician Orders for Life-Sustaining Treatment) (Acute) Alzheimer disease (Chronic) Executive function deficit (Chronic) Anomia (Chronic) Requires assistance with activities of daily living (ADL) (Chronic) Goals of care, counseling/discussion (Acute) Palliative care patient (Acute) Dementia (Chronic) 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 is fagot heater Mitral valve regurgitation (Acute) Synovial cyst of popliteal space (Acute) left leg- causes no problem to pt Paroxysmal atrial fibrillation (Acute 04/15/14) has seen cardiology [facility], asa, decided against eliquis at this time Hyperlipidemia (Acute) Essential hypertension (Acute) Carotid artery stenosis (Acute) left-[facility] BPH without urinary obstruction (Acute) Anemia (Acute) Medical History Tick bite with target lesion, May 2021 Chest pain History of tobacco use History of chronic obstructive pulmonary disease History of atrial fibrillation Hypercholesteremia Hypertension Cataract Anticoagulated on warfarin A-fib; goal 2-3 Surgical History Status post carpal tunnel release Status post cataract extraction and insertion of intraocular lens of right eye (04/20/15) Status post cataract extraction and insertion of intraocular lens of left eye (02/20/19) History of surgical removal of ganglion cyst Open Carpal Tunnel release LEFT - Pt spouse denies carpal tunnel Family History Mother , 75 Lung cancer Substance abuse Father , 84 Essential hypertension Hyperlipidemia Dementia per , multiple members of father's family with dementia Maternal Grandfather No problems noted. Paternal Grandfather , 68 Essential hypertension Heart disease Hyperlipidemia Stroke Grandmother , 92 No problems noted. Paternal Grandmother , 84 Diabetes Heart disease Son No problems noted. 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, [employer] Pets and animals: No Do you think of yourself as: straight/heterosexual Current gender identity: male What is your relationship status?: How often do you talk on the phone with friends or family?: never How often do you get together with friends or relatives?: once per week How often do you attend restoration or episcopalian services?: decline to answer Do you belong to any clubs or organized social groups?: no Panel score (0-1 are the most socially isolated patients): 1 What type of physical activity do you participate in: walking Duration: 15-30 minutes/day Frequency: 3-4 times per week Radha/Mandaen: No preference Special radha needs: No Seatbelt use: always Drive intox or ride w/intox bobtail driver: No Working smoke detector in home: Yes Fire extinguisher in home: Yes Do you feel safe at home: Yes Do you feel safe in your relationship?: Yes Additional Social history: Siddharth has been to Maria L for 57 years. Their 2 children live locally, daughter Sharita and son Bienvenido. 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 He went out on disability for his back at age 64. He sees his children and a friend, Saeed, who lives nearby. [place], Siddharth goes everywhere with Maria L. He cannot stay alone anymore. He does wander outside of their house. He has gotten lost when he went outside of visual range of their home. Maria L has been worried about his memory for 10+ years. He saw [facility] memory clinic about 10 years ago. They said he was fine then, per Maria L, though she knew better. He does still cross [address] to get to [place]; not a safe pedestrian. Time Spent with Patient Time Spent with Patient: 45-69 minutes Time was spent: preparing to see the patient(eg.review tests), ordering medications,tests, procedures, referring, communicating with other health vehicle care specialist, indepentently interpreting results, counseling the patient and care coordination
[2024-07-07 15:47] LABS: Streptococcus Pneumoniae Ag, U Negative (Negative)
--- NOTE | 2024-07-07 16:27 | PDOC.CMDIS ---
Date of service: 07/07/24 Time of Service: 16:28 LACE Index Scoring Tool Questions: Length of Stay (in days): 4 - 6 Was the patient admitted via the E.D.?: Yes Comorbidities: Chronic Pulmonary Disease and Dementia E.D. Visits: 3 Answers: Total Score: 15 Risk of Readmission: High Risk Care Management Discharge Plan Reason for Hospitalization: RLL Pneumonia, UTI Discharge Plan: Siddharth will go to [facility] for short term rehab prior to returning home. He will transport via [facility] due to his dementia, coordinated by CM. He will follow up with his PCP and discharge plan of care. Patient/Family Education Needs: Review discharge instructions and limitations, discussion of self care needs including ask me three. Services Needed at Discharge: Long Term Facility ([facility]) and Transportation ([facility], [place]) [facility] Health Related Social Needs: No Data to Display
--- NOTE | 2024-07-07 16:52 | CHAPLAIN ---
Siddharth was sitting up in the recliner watching tv when I stopped by. I had difficulty understanding everything he said. He speaks very softly. I offered to get him a new warm blanket as he appeared cold. His arrived as I was leaving. According to hospitalist's notes, Siddharth will be going to a senior living care facility.
== END 2024-07-07 16:54 | disposition skilled nursing facility (03) | DRG 871 ==
LOC: ER 18:05 → MS 18:21
PROVIDERS: Nurse Practitioner Acute Care; Admitting Provider Internal Medicine; Emergency Provider Emergency Medicine; PCP Nurse Practitioner Family; Visit Provider Internal Medicine
DX: A41.9 Sepsis, unspecified organism (principal); J18.9 Pneumonia, unspecified organism; F02.C11 Dementia in other diseases classified elsewhere, severe, with agitation; I48.92 Unspecified atrial flutter; N39.0 Urinary tract infection, site not specified; J44.0 Chronic obstructive pulmonary disease with (acute) lower respiratory infection; R65.20 Severe sepsis without septic shock; G30.1 Alzheimer's disease with late onset; Z66 Do not resuscitate; Z91.83 Wandering in diseases classified elsewhere; K59.09 Other constipation; I34.0 Nonrheumatic mitral (valve) insufficiency; E78.5 Hyperlipidemia, unspecified; I10 Essential (primary) hypertension; I65.22 Occlusion and stenosis of left carotid artery; N40.0 Benign prostatic hyperplasia without lower urinary tract symptoms; D64.9 Anemia, unspecified; R48.8 Other symbolic dysfunctions; Z87.891 Personal history of nicotine dependence; Z79.01 Long term (current) use of anticoagulants
CPT/HCPCS: 00123; 36415; 36416; 80048; 80053; 82962; 85027; 87040; 87449; 93005; 96361; 96374; 97161; 97530; 99285; J1650; 70450; 71046; 72170; 80320; 81003; 81015; 83735; 84443; 85025; 85610; 85730; 87086; 87899; 93010; 94667; 99223; 99232; 99233; 99239; J0696

== ENCOUNTER 2024-07-16 14:14 | Emergency (ER) | payer MEDICARE, MEDICAID, SELFPAY ==
[2024-07-16 14:17] VITALS: BP 151/86; PULSE 56; RESP 15; TEMP 36.7; O2SAT 96
[2024-07-16 14:25] VITALS: BP 151/86; PULSE 56; RESP 15; TEMP 36.7; O2SAT 96
[2024-07-16 14:39] VITALS: RESP 15
--- NOTE | 2024-07-16 14:47 | ED.GENADUL_ITS ---
Discharge Plan Disposition Patient Disposition: Custodial Facility(SNF) Condition: Stable Discharge Details Chief Complaint: AMS/LOC Clinical Impression: Alzheimer disease, Unawareness Primary Care Provider: Gerri Lan ED Provider: Florecita Thompson Home Meds and New Rx's Prescriptions: No Action lorazepam 0.5 mg tablet 0.5 mg PO BID PRN (Reason: anxiety) Qty: 30 1RF Rx Instructions: Give 1 for agitation; may repeat 30 minutes later lisinopril 20 mg tablet 20 mg PO DAILY Qty: 90 3RF rivastigmine 9.5 mg/24 hour patch 24 hour 9.5 mg transdermal DAILY Qty: 90 5RF quetiapine 25 mg tablet See Rx Instructions .ROUTE .COMPLEX Qty: 360 3RF Dose Instruction: TAKE 1 TABLET BY MOUTH IN THE MORNING AND 1 TABLET AT BEDTIME WITH AN EXTRA TABLET DAILY NEEDED FOR AGITATION Rx Instructions: TAKE 1 TABLET BY MOUTH IN THE MORNING AND 2 TABLET AT BEDTIME WITH AN EXTRA TABLET DAILY NEEDED FOR AGITATION diltiazem HCl [Cardizem] 60 mg Tablet 60 mg PO TID Qty: 90 0RF Discharge Instructions Additional Instructions: Recommendations for medication changes: Increase rivastigmine transdermal patch to 13.3 mg per 24 hours Schedule Seroquel 50 mg twice daily Change your as needed dosing for agitation to 10 mg Zyprexa or 25 mg Seroquel to limit the need for benzodiazepine Please reach out to palliative care for further guidance on comfort measures for the patient. HPI General Date/Time Provider Initiated Documentation: 07/16/24 14:32 . Limitations to Documentation: altered mental status and physical limitation . HPI Narrative: 84y M with PMH of end stage dementia presents from [facility] via EMS with concerns for aggressive behavior. Per report patient became very agitated today. At some point they were able to give medication and this seemingly resolved the agitation. reports that she arrived at nursing facility around 12 and that the patient was calm and sleeing. She says she tried to give him lunch but he wouldn't eat. she says behavioral outbursts are common for him unfortunately. He is on a patch that is helpful and also responds to music. He has been staying at facility since discharge from a hospital stay with pneumonia. says he is followed by palliative care and that the plan was to transition to a technician terminal and repeater care facility, tho she doesn't feel like he has much long to live. She says his goals of care are to be comfortable, calm and not overly sedated. Related Data Home Medications ?Medication ?Instructions ?Recorded ?Confirmed lorazepam 0.5 mg tablet 0.5 mg PO BID PRN anxiety #30 tabs 10/22/23 07/16/24 lisinopril 20 mg tablet 20 mg PO DAILY #90 tabs 06/23/24 07/16/24 rivastigmine 9.5 mg/24 hour 9.5 mg transdermal DAILY #90 ea 06/23/24 07/16/24 transdermal patch quetiapine 25 mg tablet See Rx Instructions .Route 06/24/24 07/16/24 .COMPLEX #360 tabs diltiazem HCl 60 mg tablet 60 mg PO TID #90 tabs 07/07/24 07/16/24 (Cardizem) Previous Rx's ?Medication ?Instructions ?Recorded lorazepam 0.5 mg tablet 0.5 mg PO BID PRN anxiety #30 tabs 10/22/23 lisinopril 20 mg tablet 20 mg PO DAILY #90 tabs 06/23/24 rivastigmine 9.5 mg/24 hour 9.5 mg transdermal DAILY #90 ea 06/23/24 transdermal patch quetiapine 25 mg tablet See Rx Instructions .Route 06/24/24 .COMPLEX #360 tabs diltiazem HCl 60 mg tablet 60 mg PO TID #90 tabs 07/07/24 (Cardizem) Allergies Allergy/AdvReac Type Severity Reaction Status Date / Time Sulfa (Sulfonamide AdvReac Severe DROP IN Verified 07/16/24 14:26 Antibiotics) BLOOD COUNT General Stated Complaint: AMS/LOC THA: 3 Exam Narrative Exam Narrative: Review of Systems: All systems reviewed & are unremarkable except as noted in HPI and below Well-developed, elderly, frail appearing laying in bed with eyes closed, legs crossed and arms held in lap NCAT PERRL, normal conjunctiva RRR Unlabored respiratory effort, no hypoxia, tachypnea or increased WOB Nondistended abdomen Extremities w/o deformity, no cyanosis, no edema No rashes or lesions. Course Vital Signs Vital signs: Vital Signs Temperature 36.7 C 07/16/24 14:17 Pulse 56 L 07/16/24 14:17 Respiratory Rate 07/16/24 14:17 Blood Pressure 151/86 H 07/16/24 14:17 Pulse Oximetry 96 07/16/24 14:17 Temperature 36.7 C 07/16/24 14:25 Temperature Source Temporal Artery Scan 07/16/24 14:25 Pulse 56 L 07/16/24 14:25 Respiratory Rate 15 07/16/24 14:39 Respiratory Effort Normal 07/16/24 14:39 Respiratory Depth Normal 07/16/24 14:39 Respiratory Pattern Normal 07/16/24 14:39 Blood Pressure 151/86 H 07/16/24 14:25 Blood Pressure Position Supine 07/16/24 14:25 Pulse Oximetry 96 07/16/24 14:25 Oxygen Delivery Method Room Air 07/16/24 14:25 Oxygen Flow Rate 0 07/16/24 14:25 Pain Level 0 07/16/24 14:25 Comment Patient does not appear to be in any pain- resting comfortably upon arrival- unable to answer questions due to severe Alzheimer's dementia 07/16/24 14:25 Medical Decision Making Evaluation of behavioral disturbance in a patient with dementia. Prior to arrival he did receive Seroquel and Ativan given to him by the nursing facility. On my evaluation, the patient is calm and cooperative and there is no signs of agitation. I do long discussion with the regarding his goals of care. It does not seem that this is metabolic or delirium related incident as it is consistent with longstanding behavioral disturbances. I have reviewed the patient's medication list and noted some areas of improvement that may benefit his overall daily function. I had discussion with the nurse practitioner Viola Ramirez at the facility. She reports that she has been trying to place a referral to [facility] to get the patient placed in geriatric psychiatry. She was wondering if it might be easier for us to get lab work and urinalysis for that referral here versus [facility]. Again I do not feel that there is an indication for blood work or urinalysis at this time. I have advised that she increase the rivastigmine patch dosing. Scheduling Seroquel twice daily at 50 mg. Using Seroquel or Zyprexa as needed for agitation and to limit the lorazepam. I feel these things would create a better balance and evenness and behavioral disruption. And I recommended that she reach out to palliative care as he is followed by them to discuss goals of care and comfort measures for this patient. Quality:[facility] Health Related Social Needs: No Data to Display [facility] All Active Problems (Updated 07/16/24 @ 15:17 by Florecita Thompson MD) Pneumonia (Acute) Left leg swelling (Acute) Trigger finger, left middle finger (Acute) 40 mg Depo-medrol: 03/11/23 Cough (Acute) Wandering behavior due to dementia (Chronic) has gotten lost in neighborhood Urinary incontinence due to cognitive impairment (Chronic) intermittent Unawareness (Chronic) at risk for crossing street Constipation, chronic (Chronic) Deficit in activities of daily living (ADL) (Chronic) cues and reminds him Health care proxy on file (Acute) DNI (do not intubate) (Acute) DNR (do not resuscitate) (Acute) POLST (Physician Orders for Life-Sustaining Treatment) (Acute) Alzheimer disease (Chronic) Executive function deficit (Chronic) Anomia (Chronic) Requires assistance with activities of daily living (ADL) (Chronic) Goals of care, counseling/discussion (Acute) Mitral valve regurgitation (Acute) Synovial cyst of popliteal space (Acute) left leg- causes no problem to pt Hyperlipidemia (Acute) Essential hypertension (Acute) Carotid artery stenosis (Acute) [place] BPH without urinary obstruction (Acute) Anemia (Acute) Medical History Atrial flutter, paroxysmal Atrial flutter Dementia 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 is boom tender Paroxysmal atrial fibrillation (04/15/14) has seen cardiology [facility], asa, decided against eliquis at this time Tick bite with target lesion, May 2021 Chest pain History of tobacco use History of chronic obstructive pulmonary disease History of atrial fibrillation Hypercholesteremia Hypertension Cataract Anticoagulated on warfarin A-fib; goal 2-3 Surgical History Status post carpal tunnel release Status post cataract extraction and insertion of intraocular lens of right eye (04/20/15) Status post cataract extraction and insertion of intraocular lens of left eye (02/20/19) History of surgical removal of ganglion cyst Open Carpal Tunnel release LEFT - Pt spouse denies carpal tunnel Family History Mother , 75 Lung cancer Substance abuse Father , 84 Essential hypertension Hyperlipidemia Dementia per , multiple members of father's family with dementia Maternal Grandfather No problems noted. Paternal Grandfather , 68 Essential hypertension Heart disease Hyperlipidemia Stroke Grandmother , 92 No problems noted. Paternal Grandmother , 84 Diabetes Heart disease Son No problems noted. 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 Pets and animals: No Do you think of yourself as: straight/heterosexual Current gender identity: male What is your relationship status?: How often do you talk on the phone with friends or family?: never How often do you get together with friends or relatives?: once per week How often do you attend confucianist or roman catholic services?: decline to answer Do you belong to any clubs or organized social groups?: no Panel score (0-1 are the most socially isolated patients): 1 What type of physical activity do you participate in: walking Duration: 15-30 minutes/day Frequency: 3-4 times per week Radha/Sikhism: No preference Special radha needs: No Seatbelt use: always Drive intox or ride w/intox over the road driver: No Working smoke detector in home: Yes Fire extinguisher in home: Yes Do you feel safe at home: Yes Do you feel safe in your relationship?: Yes Additional Social history: Siddharth has been to Maria L for 57 years. Their 2 children live locally, daughter Sharita and son Bienvenido. 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 He went out on disability for his back at age 64. He sees his children and a friend, Saeed, who lives nearby. Except for Saeed's, Siddharth goes everywhere with Maria L. He cannot stay alone anymore. He does wander outside of their house. He has gotten lost when he went outside of visual range of their home. Maria L has been worried about his memory for 10+ years. He saw [facility] [place] about 10 years ago. They said he was fine then, per Maria L, though she knew better. He does still cross [address] to get to [employer]aeed[employer]; not a safe pedestrian.
== END 2024-07-16 15:17 | disposition skilled nursing facility (03) ==
PROVIDERS: Emergency Provider Emergency Medicine; PCP Nurse Practitioner Family
DX: G30.9 Alzheimer's disease, unspecified (principal); R41.82 Altered mental status, unspecified
CPT/HCPCS: 99283; 99284

== ENCOUNTER 2024-07-23 15:04 | Emergency (ER) | payer MEDICARE, MEDICAID, SELFPAY ==
[2024-07-23 15:09] VITALS: BP 153/89; PULSE 66; RESP 20; TEMP 35.9; O2SAT 100
--- NOTE | 2024-07-23 16:16 | DI.CT_ITS ---
Exam(s) CT HEAD CERVICAL SPINE WO EXAM: CT HEAD CERVICAL SPINE WO CLINICAL HISTORY: FALL. TECHNIQUE: Imaging Protocol: Axial computed tomography images with coronal and sagittal reformatted images were created and reviewed COMPARISON: CT CT HEAD WO from 07/03/2024 FINDINGS: The examination is limited due to patient motion artifact. CT Head: Ventricles and Extra axial spaces: Normal in size and morphology for the patient's age. Hemorrhage: None. Cerebral parenchyma: There are areas of decreased attenuation in the white matter most consistent wit h chronic microvascular ischemic disease. No evidence of an acute territorial infarct. No mass effe ct is identified. Midline shift: None. Brainstem/Cerebellum: Normal. Calvarium: Normal. Visualized Paranasal sinuses/Mastoids: Clear. There is soft tissue seen in the external auditory per ls bilaterally. This likely reflects cerumen. Please correlate clinically. Soft Tissues: Unremarkable. CT Cervical Spine: Bones: No acute fracture or subluxation. There are degenerative changes seen throughout the cervical spine. 2 mm retrolisthesis of C4 on C5. 4 mm anterolisthesis of C7 on T1. Soft Tissues: Unremarkable. Lung Apices: No evidence of an apical pneumothorax. Centrilobular emphysematous changes are seen in t he lung apices. IMPRESSION: 1. No acute intracranial process. 2. No acute fracture or subluxation in the cervical spine. RADIATION DOSE DELIVERED: Total DLP DATA REPOSITORY: All CT scans at this facility are submitted to the National Radiology Data Registry (NRDR) Dose Index Registry (DIR) with the [place] [employer] (ACR). RADIATION OPTIMIZATION: All CT scans at this facility use at least one of these dose optimization te chniques: automated exposure control; mA and/or kV adjustment per patient size (includes targeted exa ms where dose is matched to clinical indication); or iterative reconstruction.
--- NOTE | 2024-07-23 16:35 | DI.RAD_ITS ---
Exam(s) XR HIP PELVIS ADULT BL EXAM: XR HIP PELVIS ADULT BL CLINICAL HISTORY: FALL. TECHNIQUE: 2D digital imaging was performed of the pelvis and bilateral hips. Three images were obt ained. AP pelvis and lateral views of both hips were obtained. COMPARISON: CR XR PELVIS AP from 07/03/2024 FINDINGS: BONES: No acute fracture is present. No bony destructive lesion is seen. JOINTS: No dislocation present. There are degenerative changes seen in the lower lumbar spine in the sacroiliac joints. SOFT TISSUE: Vascular calcifications are seen in the soft tissues. IMPRESSION: No acute fracture or dislocation. DATA REPOSITORY: RADIATION DOSE DELIVERED:
--- NOTE | 2024-07-23 16:57 | ED.GENADUL_ITS ---
Discharge Plan Disposition Patient Disposition: Home Condition: Stable Discharge Details Chief Complaint: Fall/Non TraumaCriteria Clinical Impression: Fall Primary Care Provider: Gerri Lan ED Provider: Florecita Thompson Home Meds and New Rx's Prescriptions: No Action lorazepam 0.5 mg tablet 0.5 mg PO BID PRN (Reason: anxiety) Qty: 30 1RF Rx Instructions: Give 1 for agitation; may repeat 30 minutes later lisinopril 20 mg tablet 20 mg PO DAILY Qty: 90 3RF quetiapine 25 mg tablet See Rx Instructions .ROUTE .COMPLEX Qty: 360 3RF Dose Instruction: TAKE 1 TABLET BY MOUTH IN THE MORNING AND 1 TABLET AT BEDTIME WITH AN EXTRA TABLET DAILY NEEDED FOR AGITATION Rx Instructions: TAKE 1 TABLET BY MOUTH IN THE MORNING AND 2 TABLET AT BEDTIME WITH AN EXTRA TABLET DAILY NEEDED FOR AGITATION diltiazem HCl [Cardizem] 60 mg Tablet 60 mg PO TID Qty: 90 0RF bisacodyl [Laxative (bisacodyl)] 10 mg suppository 10 mg CO DAILY PRN polyethylene glycol 3350 [Miralax] 17 gram powder in packet 17 g PO PRN PRN magnesium hydroxide [Milk of Magnesia] 400 mg/5 mL suspension 30 ml PO DAILY PRN acetaminophen 325 mg capsule 650 mg PO Q6H PRN rivastigmine 9.5 mg/24 hour patch 24 hour 13.3 mg transdermal DAILY Discharge Instructions Instructions: Preventing falls in adults HPI General Date/Time Provider Initiated Documentation: 07/23/24 15:27 . Limitations to Documentation: altered mental status . Information obtained by: family . HPI Narrative: 84-year-old gentleman with past medical history of severe Alzheimer's dementia presents for evaluation after a fall. [facility] They reported to the that he had a fall last night while walking. She reports that today she found him laying in bed and that she went for a walk and when she came back they had told her he had fallen out of bed. There was no obvious injury, unclear what falls were witnessed. Patient is moving all of his extremities and has no signs of head trauma and has no complaints at this time Related Data Home Medications ?Medication ?Instructions ?Recorded ?Confirmed lorazepam 0.5 mg tablet 0.5 mg PO BID PRN anxiety #30 tabs 10/22/23 07/23/24 lisinopril 20 mg tablet 20 mg PO DAILY #90 tabs 06/23/24 07/23/24 quetiapine 25 mg tablet See Rx Instructions .Route 06/24/24 07/23/24 .COMPLEX #360 tabs diltiazem HCl 60 mg tablet 60 mg PO TID #90 tabs 07/07/24 07/23/24 (Cardizem) acetaminophen 325 mg capsule 650 mg PO Q6H PRN 07/23/24 07/23/24 bisacodyl 10 mg rectal suppository 10 mg CO DAILY PRN 07/23/24 07/23/24 (Laxative (bisacodyl)) magnesium hydroxide 400 mg/5 mL 30 ml PO DAILY PRN 07/23/24 07/23/24 oral suspension (Milk of Magnesia) polyethylene glycol 3350 17 gram 17 g PO PRN PRN 07/23/24 07/23/24 oral powder packet (Miralax) rivastigmine 9.5 mg/24 hour 13.3 mg transdermal DAILY 07/23/24 07/23/24 transdermal patch Previous Rx's ?Medication ?Instructions ?Recorded lorazepam 0.5 mg tablet 0.5 mg PO BID PRN anxiety #30 tabs 10/22/23 lisinopril 20 mg tablet 20 mg PO DAILY #90 tabs 06/23/24 quetiapine 25 mg tablet See Rx Instructions .Route 06/24/24 .COMPLEX #360 tabs diltiazem HCl 60 mg tablet 60 mg PO TID #90 tabs 07/07/24 (Cardizem) Allergies Allergy/AdvReac Type Severity Reaction Status Date / Time Sulfa (Sulfonamide AdvReac Severe DROP IN Verified 07/23/24 15:20 Antibiotics) BLOOD COUNT General Stated Complaint: Fall/Non TraumaCriteria THA: 3 Exam Narrative Exam Narrative: Review of Systems: All systems reviewed & are unremarkable except as noted in HPI and below Well-developed, no acute distress NCAT PERRL, normal conjunctiva RRR Unlabored respiratory effort Nondistended abdomen soft nontender Pelvis stable, extremities without deformity, moving all extremities equally, following commands Course Vital Signs Vital signs: Vital Signs Temperature 35.9 C L 07/23/24 15:09 Pulse 66 07/23/24 15:09 Respiratory Rate 20 07/23/24 15:09 Blood Pressure 153/89 H 07/23/24 15:09 Pulse Oximetry 100 07/23/24 15:09 Temperature 35.9 C L 07/23/24 15:09 Temperature Source Temporal Artery Scan 07/23/24 15:09 Pulse 66 07/23/24 15:09 Respiratory Rate 20 07/23/24 15:09 Blood Pressure 153/89 H 07/23/24 15:09 Blood Pressure Position Sitting 07/23/24 15:09 Pulse Oximetry 100 07/23/24 15:09 Oxygen Delivery Method Nasal Cannula 07/23/24 15:09 Medical Decision Making 84-year-old gentleman with significant end-stage dementia with associated behavioral disturbances that is on a fair amount of sedatives presents after a fall at the nursing facility, there is no sign of trauma. Patient appears to be at his baseline neurologic status. Per the . Imaging obtained. No traumatic injuries were identified. At this time the patient continues to be at his baseline mental status, and is stable for transport back to the facility. Quality:[facility] Health Related Social Needs: No Data to Display PFSH All Active Problems (Updated 07/23/24 @ 17:18 by Florecita Thompson MD) Fall (Acute) Pneumonia (Acute) Left leg swelling (Acute) Trigger finger, left middle finger (Acute) 40 mg Depo-medrol: 03/11/23 Cough (Acute) Wandering behavior due to dementia (Chronic) has gotten lost in neighborhood Urinary incontinence due to cognitive impairment (Chronic) intermittent Unawareness (Chronic) at risk for crossing street Constipation, chronic (Chronic) Deficit in activities of daily living (ADL) (Chronic) cues and reminds him Health care proxy on file (Acute) DNI (do not intubate) (Acute) DNR (do not resuscitate) (Acute) POLST (Physician Orders for Life-Sustaining Treatment) (Acute) Alzheimer disease (Chronic) Executive function deficit (Chronic) Anomia (Chronic) Requires assistance with activities of daily living (ADL) (Chronic) Goals of care, counseling/discussion (Acute) Mitral valve regurgitation (Acute) Synovial cyst of popliteal space (Acute) left leg- causes no problem to pt Hyperlipidemia (Acute) Essential hypertension (Acute) Carotid artery stenosis (Acute) left[place] BPH without urinary obstruction (Acute) Anemia (Acute) Medical History Atrial flutter, paroxysmal Atrial flutter Dementia 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 Paroxysmal atrial fibrillation (04/15/14) has seen cardiology [facility], asa, decided against eliquis at this time Tick bite with target lesion, May 2021 Chest pain History of tobacco use History of chronic obstructive pulmonary disease History of atrial fibrillation Hypercholesteremia Hypertension Cataract Anticoagulated on warfarin A-fib; goal 2-3 Surgical History Status post carpal tunnel release Status post cataract extraction and insertion of intraocular lens of right eye (04/20/15) Status post cataract extraction and insertion of intraocular lens of left eye (02/20/19) History of surgical removal of ganglion cyst Open Carpal Tunnel release LEFT - Pt spouse denies carpal tunnel Family History Mother , 75 Lung cancer Substance abuse Father , 84 Essential hypertension Hyperlipidemia Dementia per , multiple members of father's family with dementia Maternal Grandfather No problems noted. Paternal Grandfather , 68 Essential hypertension Heart disease Hyperlipidemia Stroke Grandmother , 92 No problems noted. Paternal Grandmother , 84 Diabetes Heart disease Son No problems noted. 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, [employer] Pets and animals: No Do you think of yourself as: straight/heterosexual Current gender identity: male What is your relationship status?: How often do you talk on the phone with friends or family?: never How often do you get together with friends or relatives?: once per week How often do you attend faith or taoist services?: decline to answer Do you belong to any clubs or organized social groups?: no Panel score (0-1 are the most socially isolated patients): 1 What type of physical activity do you participate in: walking Duration: 15-30 minutes/day Frequency: 3-4 times per week Radha/Mandaen: No preference Special radha needs: No Seatbelt use: always Drive intox or ride w/intox route salesman and driver: No Working smoke detector in home: Yes Fire extinguisher in home: Yes Do you feel safe at home: Yes Do you feel safe in your relationship?: Yes Additional Social history: Siddharth has been to Maria L for 57 years. Their 2 children live locally, daughter Sharita and son Bienvenido. 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 He went out on disability for his back at age 64. He sees his children and a friend, Saeed, who lives nearby. Except for [employer], Siddharth goes everywhere with Maria L. He cannot stay alone anymore. He does wander outside of their house. He has gotten lost when he went outside of visual range of their home. Maria L has been worried about his memory for 10+ years. He saw [facility] memory clinic about 10 years ago. They said he was fine then, per Maria L, though she knew better. He does still cross [address] to get to Saeed's; not a [facility] pedestrian.
[2024-07-23 16:58] VITALS: BP 178/100; PULSE 59; RESP 14; O2SAT 99
== END 2024-07-23 17:55 | disposition home or self-care (01) ==
PROVIDERS: Emergency Provider Emergency Medicine; PCP Nurse Practitioner Family
DX: G30.9 Alzheimer's disease, unspecified (principal); F02.80 Dementia in other diseases classified elsewhere, unspecified severity, without behavioral disturbance, psychotic disturbance, mood disturbance, and anxiety; J44.9 Chronic obstructive pulmonary disease, unspecified; I10 Essential (primary) hypertension; I48.92 Unspecified atrial flutter; I48.0 Paroxysmal atrial fibrillation; Z79.01 Long term (current) use of anticoagulants; Z87.891 Personal history of nicotine dependence; W06.XXXA Fall from bed, initial encounter; Y92.092 Bedroom in other non-institutional residence as the place of occurrence of the external cause
CPT/HCPCS: 73521; 99284; 70450; 72125; 99283

== ENCOUNTER 2024-09-18 16:02 | Outpatient (REF) | payer MEDICARE, MEDICAID, SELFPAY ==
[2024-09-18 15:18] LABS: Abs Immature Grans 0.02 10^3/uL (0.0-0.06); Absolute Basophil Count 0.05 10^3/uL (0.0-0.2); Absolute Eosinophil Count 0.51 10^3/uL (0.0-0.7); Absolute Lymphocyte Count 0.79 10^3/uL (1.2-3.4); Absolute Monocyte Count 0.58 10^3/uL (0.1-0.8); Absolute Neutrophil Count 5.07 10^3/uL (1.2-6.7); Basophils % 0.7 %; Eosinophils % 7.3 %; HCT 41.7 % (40.0-50.0); HGB 14.3 g/dL (13.5-17.5); Immature Grans % 0.3 %; Lymphocytes % 11.3 %; MCH 32.1 pg (27.0-33.0); MCHC 34.3 % (32.0-36.0); MCV 94 fL (80-95); MPV 10.6 fL (8.0-11.0); Monocytes % 8.3 %; Neutrophils % 72.1 %; Platelet Count 222 10^3/uL (130-400); RBC 4.46 10^6/uL (4.36-5.78); RDW-SD 48.7 fL; WBC 7.02 10^3/uL (4.4-10.8)
[2024-09-18 15:25] LABS: Anion Gap 6.9 mmol/L (3-11); BUN 35 mg/dL (7-18); CO2 30.1 mmol/L (21.0-32.0); CREATININE 1.2 mg/dL (0.70-1.30); Calcium 9.3 mg/dL (8.5-10.1); Chloride 107 mmol/L (98-107); Estimated GFR 60.38 (mL/min/1.73m2); Glucose 98 mg/dL (74-106); Potassium 4.3 mmol/L (3.5-5.1); Sodium 144 mmol/L (136-145)
== END 2024-09-18 16:03 | disposition home or self-care (01) ==
LOC: LBN 16:02
PROVIDERS: PCP Nurse Practitioner Family; Visit Provider Family Medicine
DX: M62.81 Muscle weakness (generalized) (principal)
CPT/HCPCS: 80048; 85025